=== PATIENT | female | born 1960 | race Caucasian/White ===

== ENCOUNTER 2018-10-21 15:40 | Emergency (ER) | payer OTHER ==
[~2018-10-21] VITALS: Ht 160 cm; Wt 51.7 kg
[~2018-10-21 15:40] MED LIST: ACETAMINOPHEN325 M1 PO; AMITRIPTYLINE H25 M2 PO; CARDIZEM; CARDIZEM CD240 MG PO; COMBIVENT INH; GLUCOPHAGE XR500 MG PO; GLUCOPHAGE500 MG PO; GLUCOTROL XL2.5 MG PO; GLUCOTROL XL5 MG PO; HYDROCODONE-AP1 EA11 PO; LEVAQUIN 500 M500 M3 PO; METFORMIN; MUCINEX600 MG PO; NEURONTIN 300300 M1 PO; NORCO 5-325 TA1 EACH PO; SYNTHROID112 MCG PO; TEGRETOL200 MG PO; TRAMADOL 50 MG50 MG PO; ULTRAM 50MG TAB50 MG PO; VICODIN 5-5001 EACH PO
[2018-10-21 16:56] LABS: ABSOLUTE NEUTROPHILS 8.7 thou/uL (1.4-8.2); BASOPHILS 1.4 % (0.0-2.0); EOSINOPHILS 0.1 % (0.0-3.0); HEMATOCRIT 44.8 % (37.0-47.0); HEMOGLOBIN 15.2 gm/dL (12.0-15.0); LYMPHOCYTES 11.9 % (24.0-44.0); MCH 30.5 pg (26.0-34.0); MCV 89.7 fL (80.0-100.0); MONOCYTES 8.3 % (1.0-8.0); PLATELET COUNT 309 thou/uL (150-400); POLYS 78.3 % (36.0-66.0); RBC 4.99 mil/uL (4.20-5.00); RDW 14.2 % (10.5-14.5); WBC 11.1 thou/uL (4.0-11.0)
[2018-10-21 16:57] LABS: URINE BILIRUBIN NEGATIVE (Negative); URINE BLOOD NEGATIVE (Negative); URINE CLARITY CLEAR; URINE COLOR YELLOW; URINE GLUCOSE-RANDOM* NEGATIVE (Negative); URINE KETONES NEGATIVE (Negative); URINE NITRITE-REFLEX NEGATIVE (Negative); URINE PROTEIN (DIPSTICK) 2+ (Negative); URINE SPECIFIC GRAVITY 1.025 (1.005-1.035); URINE UROBILINOGEN 0.2 E.U./dl (0.2-1.0)
[2018-10-21 17:02] LABS: URINE LEUKOCYTES-REFLEX TRACE (Negative)
[2018-10-21 17:06] LABS: CALCIUM 9.5 mg/dL (8.5-10.1); CREATININE 0.5 mg/dL (0.6-1.0); POTASSIUM 3.4 mmol/L (3.5-5.1)
[2018-10-21 17:12] LABS: CASTS None Seen /LPF (None Seen); CRYSTALS None Seen /LPF (None Seen); SQUAMOUS 4-10 Moderate /LPF (0-3); URINE RBC None Seen /HPF (0-2); URINE WBC-REFLEX 6-15 Few /HPF (0-5)
[2018-10-21 17:12] LABS: ALBUMIN 3.7 g/dL (3.4-5.0); TOTAL BILIRUBIN 0.5 mg/dL (<0.1-1.0); TOTAL PROTEIN 7.8 g/dL (6.4-8.2)
[2018-10-21 19:06] VITALS: BP 152/85
[2018-10-21] MEDS ORDERED: ONDANSETRON HCL4 M2 PO (19:48)
[2018-10-21] MEDS ORDERED: TEGRETOL200 MG PO (19:48)
[2018-10-21] MEDS ORDERED: SYNTHROID112 MC1 PO (19:48)
[2018-10-21] MEDS ORDERED: NORCO 5-325 TA1 EACH PO (19:48)
[2018-10-21] MEDS ORDERED: DOXYCYCLINE 10100 MG PO (19:48)
[2018-10-21] MEDS ORDERED: CARDIZEM CD240 MG PO (19:48)
== END 2018-10-21 20:10 | disposition home or self-care (01) ==
LOC: ER 15:40
PROVIDERS: Physician Assistant
DX: J18.9 Pneumonia, unspecified organism (principal); E03.9 Hypothyroidism, unspecified; R11.2 Nausea with vomiting, unspecified; R00.0 Tachycardia, unspecified; Z76.0 Encounter for issue of repeat prescription; J44.9 Chronic obstructive pulmonary disease, unspecified; I10 Essential (primary) hypertension; E11.9 Type 2 diabetes mellitus without complications; M41.9 Scoliosis, unspecified; Z88.1 Allergy status to other antibiotic agents; Z85.038 Personal history of other malignant neoplasm of large intestine

== ENCOUNTER 2020-02-05 23:32 | Inpatient (IN) | payer OTHER ==
[~2020-02-05] VITALS: Ht 160 cm; Wt 67.8 kg
[~2020-02-05 23:32] MED LIST changes: +DOXYCYCLINE 10100 MG PO; +ONDANSETRON HCL4 M2 PO; +SYNTHROID112 MC1 PO
[2020-02-05 23:33] VITALS: BP 174/74
[2020-02-06] VITALS (81 sets, daily range): BP systolic 77–148; BP diastolic 38–84
[2020-02-06 00:02] LABS: BE(vivo) -7.7 mmol/L (-2 to +3); PCO2 37.2 mmHg (35.0-45.0); PO2 61.6 mmHg (80.0-100.0); sO2 89.5 % (92.0-98.0)
[2020-02-06 00:03] LABS: pH 7.302 (7.360-7.450)
[2020-02-06 00:49] LABS: ABSOLUTE NEUTROPHILS 4.3 thou/uL (1.4-8.2); BASOPHILS 0.7 % (0.0-2.0); EOSINOPHILS 2.8 % (0.0-3.0); HEMATOCRIT 36.2 % (37.0-47.0); HEMOGLOBIN 11.7 gm/dL (12.0-15.0); LYMPHOCYTES 10.7 % (24.0-44.0); MCH 32.7 pg (26.0-34.0); MCHC 32.3 g/dL (28.0-37.0); MCV 101.2 fL (80.0-100.0); MONOCYTES 3.7 % (1.0-8.0); PLATELET COUNT 271 thou/uL (150-400); POLYS 82.1 % (36.0-66.0); RBC 3.58 mil/uL (4.20-5.00); RDW 14.8 % (10.5-14.5); WBC 5.2 thou/uL (4.0-11.0)
[2020-02-06 01:01] LABS: ANION GAP 22 mmol/L (7-16); BUN 52 mg/dL (7-18); CALCIUM 6.6 mg/dL (8.5-10.1); CHLORIDE 94 mmol/L (98-107); CO2 19 mmol/L (21-32); CREATININE 3.5 mg/dL (0.6-1.0); GLUCOSE 72 mg/dL (74-106); POTASSIUM 4.6 mmol/L (3.5-5.1); SODIUM 135 mmol/L (136-145)
[2020-02-06 01:13] LABS: ALBUMIN 2.9 g/dL (3.4-5.0); DIRECT BILIRUBIN 1.9 mg/dL (<0.1-0.2); SGOT 1957 U/L (15-37); SGPT 1473 U/L (30-65); TOTAL BILIRUBIN 2.7 mg/dL (<0.1-1.0); TOTAL PROTEIN 6.5 g/dL (6.4-8.2); TROPONIN-I <0.06 ng/mL (<0.06)
[2020-02-06 02:33] LABS: BE(vivo) -13.2 mmol/L (-2 to +3); HCO3 15.4 mmol/L (22.0-26.0); PCO2 46.4 mmHg (35.0-45.0); PO2 229.8 mmHg (80.0-100.0); sO2 99.2 % (92.0-98.0)
[2020-02-06 02:39] LABS: pH 7.139 (7.360-7.450)
[2020-02-06 02:40] LABS: URINE BILIRUBIN 2+ (Negative); URINE BLOOD NEGATIVE (Negative); URINE CLARITY SL CLOUDY; URINE COLOR YELLOW; URINE GLUCOSE-RANDOM* TRACE (Negative); URINE KETONES NEGATIVE (Negative); URINE LEUKOCYTES-REFLEX NEGATIVE (Negative); URINE PROTEIN (DIPSTICK) 2+ (Negative); URINE SPECIFIC GRAVITY >= 1.030 (1.005-1.035)
[2020-02-06 02:46] LABS: URINE NITRITE-REFLEX POSITIVE (Negative)
[2020-02-06 02:49] LABS: AMP/METHAMP Negative (Negative); BARBITURATES Negative (Negative); BENZODIAZEPINES Negative (Negative); COCAINE Negative (Negative); METHADONE Negative (Negative); OPIATES POSITIVE (Negative); PCP Negative (Negative)
[2020-02-06 03:21] LABS: BACTERIA-REFLEX 1-9 Few /HPF (None Seen); MUCUS 0-3 Light strn/LPF (None Seen); SQUAMOUS 4-10 Moderate /LPF (0-3); URINE RBC 0-2 Rare /HPF (0-2); URINE WBC-REFLEX 0-5 Rare /HPF (0-5)
[2020-02-06 03:22] LABS: CELLULAR CASTS 0-3 Few /LPF (None Seen); CRYSTALS None Seen /LPF (None Seen); HYALINE CASTS >10 Many /LPF (None Seen)
--- NOTE | 2020-02-06 03:25 | NUR ---
REPORT RECEIVED FROM MICKEY POPE. PT BROUGHT TO ICU FROM ED. PATIENT ON PROPOFOL AND LEVOPHED. PT INTUBATED. PT CONNECTED TO ICU MONITORS, ASSESSED PER ICU PROTOCOL.
[2020-02-06 07:14] LABS: CALCIUM 6.9 mg/dL (8.5-10.1); CREATININE 3.3 mg/dL (0.6-1.0); POTASSIUM 4.1 mmol/L (3.5-5.1)
[2020-02-06 10:04] LABS: BE(vivo) -10.2 mmol/L (-2 to +3); HCO3 15.2 mmol/L (22.0-26.0); PCO2 31.9 mmHg (35.0-45.0); PO2 89.6 mmHg (80.0-100.0); sO2 96.1 % (92.0-98.0)
[2020-02-06 10:05] LABS: pH 7.296 (7.360-7.450)
--- NOTE | 2020-02-06 11:01 | NUR ---
chart review. pt intubated, unable to visit with her via phone call. will cont following as needed for dc needs.
[2020-02-06 13:27] LABS: ALBUMIN 2.2 g/dL (3.4-5.0); CALCIUM 6.1 mg/dL (8.5-10.1); DIRECT BILIRUBIN 1.5 mg/dL (<0.1-0.2); POTASSIUM 3.9 mmol/L (3.5-5.1); TOTAL BILIRUBIN 1.8 mg/dL (<0.1-1.0); TOTAL PROTEIN 5.2 g/dL (6.4-8.2)
--- NOTE | 2020-02-06 15:01 | NUR ---
VASCULAR ACCESS CONSULTED TO PLACE CVAD AND REMOVE FEMORAL LINE. FAMILY UNDECIDED IF WILL CONSENT TO IJ PLACEMENT. WAITING FOR RETURN CALL FROM SON
--- NOTE | 2020-02-06 16:53 | NUR ---
ASSUMED CARE AT 0700, ASSESSMENT AND VITAL SIGNS COMPLETED PER ICU PROTOCOL. DR. NAVARRO ROUNDED IN AN, NEW ORDERS RECEIVED AND EXECUTED. DR. PAUL ROUNDED THIS AM, NO NEW ORDERS RECEIVED. DR. MENSAH ROUNDED THIS AM, NO NEW ORDERS RECEIVED. DR. SOLIMAN ROUNDED THIS AM, NO NEW ORDERS RECEIVED. DR. LAM ROUNDED THIS AM, NO NEW ORDERS RECEIVED. DR. RANDLE ROUNDED THIS AFTERNOON, NEW ORDERS RECEIVED AND EXECUTED. DR. NAVARRO PAGED AND NOTIFIED OF LOW URINE OUTPUT, NEW ORDERS RECEIVED AND EXECUTED. CJ HERNÁNDEZ, ORDERED ABD ULTRASOUND. RN VOICED REPORTED COVID RESULTS STILL PENDING, OKAY TO HOLD TEST UNTIL COVID RESULTS ARE BACK, PER EDGAR.
--- NOTE | 2020-02-06 17:30 | NUR ---
CONSENT OBTAINED FROM SON. HADLEY WAS WIDELY PATENT WITH [facility]. PT'S LABS,MEDS,HISTORY,ORDER AND CONSENT VERIFIED. 6FR TL POWER JACC 25CM INSERTED TO 10CM EXTERNAL. STAT CXR ORDERED. PT TOLERATED WELL
--- NOTE | 2020-02-06 18:16 | NUR ---
CXR CONFIRMED PLACEMENT, RELEASED FOR IMMEDIATE USE PER PROTOCOL TO RAKESH AREVALO. PRESSURE DRESSING APPLIED TO RIJ DUE TO INCREASED BLEEDING AT SITE.
[2020-02-07] VITALS (44 sets, daily range): BP systolic 102–142; BP diastolic 54–99
[2020-02-07 01:07] LABS: GLYCOHEMOGLOBIN (HGB A1C) 5.4 % (4.8-5.6)
--- NOTE | 2020-02-07 03:42 | NUR ---
ASSUMED PT CARE AROUND 1900. PT IS INTUBATED BUT CAN BE AROUSED WITH MOVEMENT. PT PUPILS ARE REACTIVE. FiO2 INCREASED TO 70% PER RESPIRATORY. PT HR REMAINED SR-ST IN LOW 100s. PT HAS BEEN TURNED AND SUCTIONED APPROPRIATELY. FEMORAL LINE REMOVED PER PROTOCOL. PT WEISS IN PLACE WITH INCREASED OUTPUT FROM PREVIOUS SHIFT. OGT PRODUCING DARK GREEN OUTPUT. PT COVID RESULT NEGATIVE REMOVED FROM ISOLATION PER PROTOCOL. FAMILY CALLED WANTING TO VISIT ADVISED THAT NO VISITORS AT THIS TIME. MONITORING PT CLOSELY THRU SHIFT FOR ANY CHANGES.
[2020-02-07 04:53] LABS: BE(vivo) -0.5 mmol/L (-2 to +3); HCO3 24.5 mmol/L (22.0-26.0); PCO2 41.8 mmHg (35.0-45.0); PO2 73.6 mmHg (80.0-100.0); pH 7.386 (7.360-7.450); sO2 94.6 % (92.0-98.0)
[2020-02-07 07:08] LABS: HAV IgM AB (ANTI-HAV IgM) Negative (Negative); HEPATITIS B SURFACE AG Negative (Negative); HEPATITIS C VIRUS AB <0.1 (0.0-0.9)
[2020-02-07 08:17] LABS: HEMATOCRIT 26.1 % (37.0-47.0); MCH 33.1 pg (26.0-34.0); MCV 97.5 fL (80.0-100.0); RBC 2.68 mil/uL (4.20-5.00); RDW 14.7 % (10.5-14.5); WBC 4.4 thou/uL (4.0-11.0)
[2020-02-07 08:36] LABS: ALBUMIN 2.2 g/dL (3.4-5.0); CALCIUM 6.9 mg/dL (8.5-10.1); MAGNESIUM 1.9 mg/dL (1.8-2.4); PHOSPHORUS 3.5 mg/dL (2.5-4.9); TOTAL PROTEIN 5.5 g/dL (6.4-8.2)
[2020-02-07 08:39] LABS: CREATININE 1.8 mg/dL (0.6-1.0); POTASSIUM 2.8 mmol/L (3.5-5.1)
[2020-02-07 08:45] LABS: HEMOGLOBIN 8.9 gm/dL (12.0-15.0)
--- NOTE | 2020-02-07 09:11 | NUR ---
Lab called with critical results at 0837. Dr. Rsoa was paged through the answering service at 0841. A repeat page was performed at 0904. RN spoke with Dr. Londono at 0908. RN read provider critical results. He verbalized understanding and asked for the rest of the chemistry results. Provider then ordered 40 of IV KCL to be given now along with previously ordered 80mg of lasix, 40 of IV KCL to be given at 1400, and then recheck K levels at 1600. RN verbalized understanding. Will continue to monitor.
--- NOTE | 2020-02-07 09:32 | EKG ---
[facility] [address] [place] [address] [address] ELECTROCARDIOGRAM REPORT Name: VEENA VIERA Room #: 246-P ADM IN M.R.#: [id number] Admission: 02/06/20 Attend Phys: Noel Russo MD Discharge: Date of : 60 Report #: [id number] THIS REPORT FOR: cc: [facility] - Clinic physician unknown [facility] - Clinic physician unknown Souleymane Ram MD [facility] THIS REPORT FOR: //name// [facility] Test Date: 2020-02-07 Test Time: 07:31:42 Pat Name: VEENA VIERA Department: Room: [facility] P Gender: F It Investment/Portfolio Manager: Sudeep ONTIVEROS : 1960 Requested By: Ivonne Sheldon Order Number: [id number] MD: Souleymane Ram Measurements Intervals [place] Rate: 103 P: 64 MT: 180 QRS: -50 QRSD: 85 T: 75 QT: 399 QTc: 523 Interpretive Statements Sinus tachycardia Left anterior fascicular block RSR' in V1 or V2, right VCD Nonspecific ST and T wave abnormality Prolonged QT interval Compared to ECG 02/06/2020 14:36:14 Atrial premature complex(es) no longer present Electronically Signed On 02-07-2020 9:31:09 CDT by Souleymane Ram [email or web address] <ELECTRONICALLY SIGNED> By: Souleymane Ram MD, [facility] 02/07/20930 0 0 Souleymane Ram MD, [facility] /EPI
--- NOTE | 2020-02-07 11:16 | 2DMMODE ---
[facility] [place] [address] 2 D/M-MODE ECHOCARDIOGRAM Name: VEENA VIERA Room #: 246-P ADM IN M.R.#: [id number] Admission: 02/06/20 Attend Phys: Noel Russo MD Discharge: Date of : 60 Report #: [id number] THIS REPORT FOR: cc: [facility] - Clinic physician unknown [facility] - Clinic physician unknown Souleymane Ram MD [facility] ~ APPROVED REPORT Study performed: 02/07/2020 10:28:55 EXAM: Comprehensive 2D, Doppler, and color-flow Echocardiogram Patient Location: ICU Room #: 246 Status: routine BSA: 1.67 HR: 90 bpm BP: 121/67 mmHg Rhythm: NSR/irregular Other Information Study Quality: Adequate/patient on vent in ICU Indications Caridac vs. respiratory arrest. CHF. Hx: COPD, HTN, DM, cancer. 2D Dimensions RVDd: 32.75 mm IVSd: 10.64 (7-11mm) LVOT Diam: 20.62 (18-24mm) LVDd: 39.02 mm PWd: 8.84 (7-11mm) Ascending Ao: 32.12 (22-36mm) LVDs: 25.45 (25-40mm) Aortic Root: 33.76 mm Volumes Left Atrial Volume (Systole) Single Plane 4CH: 20.62 mL Single Plane 2CH: 34.90 mL LA ESV Index: 17.00 mL/m2 Aortic Valve AoV Peak Abdulaziz.: 1.36 m/s AO Peak Gr.: 7.37 mmHg LVOT Max P.27 mmHg LVOT Max V: 1.25 m/s MICHELET Vmax: 3.[address] [facility] [address] [place] [address] 2 D/M-MODE ECHOCARDIOGRAM Name: VEENA VIERA Room #: [address] [place] [address] [place] [facility].#: [id number] Admission: 02/06/20 Attend Phys: Noel Russo MD Discharge: Date of : 60 Report #: [id number] Mitral Valve E/A Ratio: 0.8 MV Decel. Time: 290.24 ms MV E Max Abdulaziz.: 1.05 m/s MV A Abdulaziz.: 1.32 m/s MV PHT: 84.17 ms IVRT: 72.66 ms Pulmonary Valve PV Peak Abdulaziz.: 0.90 m/s PV Peak Gr.: 3.21 mmHg Tricuspid Valve TR Peak Abdulaziz.: 3.00 m/s RAP Estimate: 15.00 mmHg TR Peak Gr.: 36.12 mmHg PA Pressure: 51.00 mmHg Left Ventricle The left ventricle is normal size. There is normal LV segmental wall motion. There is normal left ventricular wall thickness. Left ventricular systolic function is normal. LVEF is 60-65%. Mild diastolic dysfunction is present (impaired relaxation pattern). Right Ventricle The right ventricle is normal size. Right ventricle is mildly hypokinetic. Atria The left atrium size is normal. Lipomatous hypertrophy of the atrial septum The right atrium size is normal. Aortic Valve The aortic valve is trileaflet, mildly calcified. No aortic regurgitation is present. There is no aortic valvular stenosis. Mitral Valve Moderate mitral annular calcification. There is no mitral valve regurgitation noted. No evidence of mitral valve stenosis. Tricuspid Valve The tricuspid valve is normal in structure. Trace to mild tricuspid regurgitation. Estimated PAP is [address] [facility] [employer] [place] [address] 2 D/M-MODE ECHOCARDIOGRAM Name: VEENA VIERA Room #: 246-P ADM IN M.R.#: [id number] Admission: 02/06/20 Attend Phys: Noel Russo MD Discharge: Date of : 60 Report #: [id number] The pulmonary valve is normal in structure. Mild to moderate pulmonic regurgitation. Great Vessels The aortic root is normal in size. The ascending aorta is normal in size. IVC is dilated and collapses <50% with inspiration. Pericardium There is no pericardial effusion. <Conclusion> Left ventricular systolic function is normal. There is normal LV segmental wall motion. LVEF is 60-65%. Mild diastolic dysfunction The aortic valve is trileaflet, mildly calcified. No aortic regurgitation or stenosis. Moderate mitral annular calcification. No mitral valve regurgitation. Trace to mild tricuspid regurgitation. Estimated pulmonary artery pressure of 45 mmHg. There is no pericardial effusion. <ELECTRONICALLY SIGNED> By: Souleymane Ram MD, [facility] 02/07/20 1115 1115 1115 Souleymane Ram MD, FACC /INF
[2020-02-08] VITALS (24 sets, daily range): BP systolic 93–157; BP diastolic 48–78
[2020-02-08 05:46] LABS: ALBUMIN 2.1 g/dL (3.4-5.0); CALCIUM 6.9 mg/dL (8.5-10.1); CREATININE 0.9 mg/dL (0.6-1.0); PHOSPHORUS 2.2 mg/dL (2.5-4.9)
[2020-02-08 05:51] LABS: POTASSIUM 2.7 mmol/L (3.5-5.1)
--- NOTE | 2020-02-08 08:20 | EKG ---
[facility] [place] [address] ELECTROCARDIOGRAM REPORT Name: VEENA VIERA Room #: 246-P ADM IN M.R.#: [id number] Admission: 02/06/20 Attend Phys: Noel Russo MD Discharge: Date of : 60 Report #: [id number] THIS REPORT FOR: cc: [facility] - Clinic physician unknown [facility] - Clinic physician unknown Souleymane Ram MD [facility] THIS REPORT FOR: //name// [facility] Test Date: 2020-02-08 Test Time: 08:12:08 Pat Name: VEENA VIERA Department: Room: [facility] P Gender: F Network Program Manager: JYOTHI : 1960 Requested By: Ivonne Sheldon Order Number: [id number] MD: Souleymane Ram Measurements Intervals [place] Rate: 91 P: 78 AR: 143 QRS: -27 QRSD: 96 T: 36 QT: 404 QTc: 498 Interpretive Statements Sinus rhythm Borderline left axis deviation Low voltage RSR' in V1 or V2, right VCD prolonged QT interval Compared to ECG 02/07/2020 07:31:42 No significant change was found Electronically Signed On 02-08-2020 8:19:04 CDT by Souleymane Ram [email or web address] <ELECTRONICALLY SIGNED> By: Souleymane Ram MD, [facility]AC 02/08/20818 1 1 Souleymane Ram MD, FAC /EPI
--- NOTE | 2020-02-08 08:25 | NUR ---
RD recommendations changed with hyperglycemia. Suggest initiate vital AF 1.2 at goal of 45ml/hr while on propofol.
[2020-02-08 15:20] LABS: MAGNESIUM 2.1 mg/dL (1.8-2.4); PHOSPHORUS 3.7 mg/dL (2.5-4.9); POTASSIUM 3.6 mmol/L (3.5-5.1)
[2020-02-09] VITALS (24 sets, daily range): BP systolic 97–147; BP diastolic 48–88
[2020-02-09 04:13] LABS: ABSOLUTE NEUTROPHILS 3.9 thou/uL (1.4-8.2); BASOPHILS 0.1 % (0.0-2.0); HEMATOCRIT 24.9 % (37.0-47.0); HEMOGLOBIN 8.3 gm/dL (12.0-15.0); LYMPHOCYTES 7.1 % (24.0-44.0); MCH 32.6 pg (26.0-34.0); MCHC 33.4 g/dL (28.0-37.0); MCV 97.8 fL (80.0-100.0); MONOCYTES 5.2 % (1.0-8.0); PLATELET COUNT 99 thou/uL (150-400); POLYS 87.6 % (36.0-66.0); RBC 2.55 mil/uL (4.20-5.00); RDW 14.9 % (10.5-14.5); WBC 4.4 thou/uL (4.0-11.0)
[2020-02-09 04:28] LABS: ALBUMIN 2.1 g/dL (3.4-5.0); CALCIUM 7.3 mg/dL (8.5-10.1); CREATININE 0.6 mg/dL (0.6-1.0); TOTAL BILIRUBIN 2.5 mg/dL (<0.1-1.0); TOTAL PROTEIN 5.1 g/dL (6.4-8.2)
--- NOTE | 2020-02-09 07:42 | NUR ---
ASSUMED CARE OF PATIENT AT 1900, PATIENT ON MODERATE SEDATEION. ATTEMPTED TO WEAN PROPOFOL DOWN, PATIENT RESPIRATORY RATE INCREASED AND GAGING ON TUBE, PROPOFOL CURRENTLY AT 40MCG/HR, NO SIGN OF PAIN. FIO2 45%, NO RESPIRATORY ISSUES OVER NIGHT. OG TO LIS. WEISS PATENT AND 30ML/HR. IVF DISCONTINUED PER DR. WOLF. ELECTROLYTES CLOSELY MONITORED, POTASSIUM REPLACED. NO SIGN OF ACUTE DISTRESS NOTED AT THIS TIME. WILL CONTINUE TO MONITOR.
--- NOTE | 2020-02-09 11:06 | NUR ---
chart review. pt remain intubated, has TF for nutritional support. possible weaning trails. no anticipated dc over the weekend, will cont following as needed for dc needs.
--- NOTE | 2020-02-09 11:09 | NUR ---
CPAP TRIAL INITIATED THIS AM. PT BECAME ANXIOUS, TACYHCARDIC AND TACHYPENIC. PLACED BACK ON ASSIST CONTROL. PROPOFOL INFUSING TO MAINTAIN A LIGHT SEDATION FOR VENT MANAGEMENT. DR. MENSAH AND GI DOCTOR ROUNDED ON PATIENT.
--- NOTE | 2020-02-09 12:24 | EKG ---
[facility] [place] [address] [place] [address] ELECTROCARDIOGRAM REPORT Name: VEENA VIERA Room #: 246-P ADM IN M.R.#: [id number] Admission: 02/06/20 Attend Phys: Noel Russo MD Discharge: Date of : 60 Report #: [id number] THIS REPORT FOR: cc: [facility] - Clinic physician unknown [facility] - Clinic physician unknown Souleymane Ram MD [facility] THIS REPORT FOR: //name// [facility] ED Test Date: 2020-02-06 Test Time: 01:21:13 Pat Name: VEENA VIERA Department: Room: 246 P Gender: F Metal Grader: GISSEL : 1960 Requested By: Migdalia Mcclain Order Number: [id number] MD: Souleymane Ram Measurements Intervals [place] Rate: 76 P: 55 TN: 171 QRS: 262 QRSD: 102 T: 50 QT: 516 QTc: 581 Interpretive Statements Sinus rhythm LAD RSR' in V1 or V2, right VCD Repol abnrm suggests ischemia, anterolateral Prolonged QT interval QT interval has lengthened Electronically Signed On 02-06-2020 8:00:02 CDT by Souleymane Ram [email or web address] <ELECTRONICALLY SIGNED> By: Souleymane Ram MD, [facility] 02/06/20 0800 0 012 Souleymane Ram MD, [facility] /EPI
--- NOTE | 2020-02-09 12:26 | EKG ---
[facility] [address] [place] [address] ELECTROCARDIOGRAM REPORT Name: VEENA VIERA Room #: 246-P ADM IN M.R.#: [id number] Admission: 02/06/20 Attend Phys: Noel Russo MD Discharge: Date of : 60 Report #: [id number] THIS REPORT FOR: cc: [facility] - Clinic physician unknown [facility] - Clinic physician unknown Souleymane Ram MD [facility] THIS REPORT FOR: //name// [facility] Test Date: 2020-02-06 Test Time: 14:36:14 Pat Name: VEENA VIERA Department: Room: 246 P Gender: F Marble Finisher: Misty YAÑEZ : 1960 Requested By: Raymundo Cabezas Order Number: [id number] MD: Souleymane Ram Measurements Intervals [place] Rate: 101 P: 70 AL: 150 QRS: -71 QRSD: 82 T: 45 QT: 380 QTc: 493 Interpretive Statements Sinus tachycardia Atrial premature complexes Left anterior fascicular block RSR' in V1 or V2, right VCD Nonspecific ST and T wave abnormality Prolonged QT interval Compared to ECG 02/06/2020 01:21:13 Atrial premature complex(es) now present Electronically Signed On 02-06-2020 16:28:37 CDT by Souleymane Ram [email or web address] <ELECTRONICALLY SIGNED> By: Souleymane Ram MD, [facility] 02/06/20 1628 1436 1436 Souleymane Ram MD, [facility] /EPI
--- NOTE | 2020-02-09 12:37 | NUR ---
LAB CALLED TO STATE PREVIOUS SPUTUM SENT COULD NOT BE RESULTED. NEW ORDER PLACED AND SENT TO LAB.
[2020-02-09 17:55] LABS: ABSOLUTE RETIC COUNT 0.0616 10^6/uL; OBSERVED RETIC COUNT 2.4 % (0.6-2.6)
[2020-02-09 21:07] LABS: APTT 25.7 Seconds (24.5-32.8); D-DIMER 4.55 ug/mLFEU (0.19-0.50); FIBRINOGEN 148.9 mg/dL (210-360); INR 1.2; PROTIME 12.3 Seconds (9.3-11.4)
[2020-02-10] VITALS (22 sets, daily range): BP systolic 104–156; BP diastolic 57–88
[2020-02-10 04:58] LABS: ABSOLUTE NEUTROPHILS 4.9 thou/uL (1.4-8.2); BASOPHILS 0.1 % (0.0-2.0); HEMATOCRIT 26.3 % (37.0-47.0); HEMOGLOBIN 8.8 gm/dL (12.0-15.0); LYMPHOCYTES 7.3 % (24.0-44.0); MCH 33.2 pg (26.0-34.0); MCHC 33.7 g/dL (28.0-37.0); MCV 98.5 fL (80.0-100.0); MONOCYTES 5.1 % (1.0-8.0); PLATELET COUNT 108 thou/uL (150-400); POLYS 87.5 % (36.0-66.0); RBC 2.67 mil/uL (4.20-5.00); RDW 15.3 % (10.5-14.5); WBC 5.6 thou/uL (4.0-11.0)
[2020-02-10 05:00] LABS: CALCIUM 8.2 mg/dL (8.5-10.1); CREATININE 0.8 mg/dL (0.6-1.0); POTASSIUM 3.8 mmol/L (3.5-5.1)
--- NOTE | 2020-02-10 07:32 | NUR ---
SEDATION VACATION PERFORMED AT 1999, PT ON 6MG OF VERSED. VERSED OFF FOR 30 MINS. PT UNABLE TO FOLLOW COMMANDS. MOVES EXTREMITIES. DOESN'T RESPONSED TO NAME OR OPEN EYES WHEN NAME CALLED. VITAL SIGNS STABLE DURING THIS PERIOD. VERSED TITRATED DOWN TO 4MG AT 2030 DURING THE NIGHT. ANOTHER SEDATION VACATION PERFOMED AT 0530, FOR APPROXIMATELY 15 MINS. PT STILL ABLE TO MOVE EXTREMETIES. DOESN'T FOLLOW COMMANDS. VERSED TITRATED DOWN TO 2MG, CURRENTLY ONGOING. AFEBRILE DURING THE NIGHT. URINE OUTPUT NOTED. NO APPARENT PAIN. TF ONGOING AND TOLERATING. WILL CONTINUE TO MONITOR.
[2020-02-10 16:07] LABS: ADENOVIRUS Negative (Negative); INFLUENZA A Negative (Negative); INFLUENZA B Negative (Negative); METAPNEUMOVIRUS Negative (Negative); PARAINFLUENZA 1 Negative (Negative); PARAINFLUENZA 2 Negative (Negative); PARAINFLUENZA 3 Negative (Negative); RHINOVIRUS Negative (Negative); RSV A Negative (Negative); RSV B Negative (Negative)
--- NOTE | 2020-02-10 17:38 | NUR ---
IN EARLY AM, SEDATION VACATION FOLLOWED BY CPAP TRIAL FOR 10 MIN, RR-28-30, FACIAL GRIMACE, DISTRESSED. RETURNED TO ASSIST CONTROL PER COLLABORATION WITH RT TOMASA. VERSED REMAINS OFF. FENTANYL RESTARTED WHEN PT HAVING FACIAL GRIMACE AND RESTLESS IN BED. FOLLOWING COMMANDS WITH ALL EXTREMITIES, SR. WHEN DR. STRICKLAND PRESENT UPDATED ON FREQUENT TRIPLETS OF PVC'S. POTASSIUM- 3.8, KCL REPLACEMENT GIVEN PER ONE TIME ORDER. ECTOPY RESOLVED. POTASSIUM RECHECK TOMORROW AM PER MD REQUEST. DECREASING SECRETIONS PER ETT THROUGH SHIFT. BUTTOCKS INTACT WITH DEEP TISSUE INJURY, REDDENED/DEEP PURPLE. ROTATION ENABLED AND REPOSTIONED EVERY 2 HRS. RACIEL VIERA, SON INQUIRED REGARDING PT STATUS. HIS FIRST CALL, HE WAS UNSURE OF THE PRIVACY CALLED. INFORMED OF IMPORTANCE OF PATIENT PRIVACY. WHEN HE INQUIRED AGAIN, HE STATED, "I DON'T KNOW WHY I'M HAVING SO MUCH TROUBLE TRYING TO GET INFORMATION". INFORMED HIM THIS IS THE SAME NURSE HE SPOKE WITH PREVIOUSLY. HE REQUESTED TO PLACE REQUEST FOR ADDITIONAL AUTHORIZED CONTACTS/ DESIGNATED PT PRIMARY COUNSELOR. AFTER DISCUSSION, HE DECIDED TO MAINTAIN THE CURRENT CONTACTS.
[2020-02-11] VITALS (29 sets, daily range): BP systolic 88–172; BP diastolic 53–103
[2020-02-11 03:40] LABS: HEMATOCRIT 27.7 % (37.0-47.0); HEMOGLOBIN 9.2 gm/dL (12.0-15.0); MCH 32.6 pg (26.0-34.0); MCV 98.7 fL (80.0-100.0); RBC 2.81 mil/uL (4.20-5.00); RDW 15.4 % (10.5-14.5); WBC 7.1 thou/uL (4.0-11.0)
[2020-02-11 03:57] LABS: ALBUMIN 2.3 g/dL (3.4-5.0); CALCIUM 8.3 mg/dL (8.5-10.1); CREATININE 0.6 mg/dL (0.6-1.0); POTASSIUM 4.4 mmol/L (3.5-5.1); TOTAL BILIRUBIN 1.9 mg/dL (<0.1-1.0); TOTAL PROTEIN 5.4 g/dL (6.4-8.2)
--- NOTE | 2020-02-11 07:30 | NUR ---
NO OVERNIGHT EVENTS. PT CONTINUES TO HAVE ECTOPY, POTASSIUM WITHIN NORMAL RANGE AND MAGNESIUM LOW. WILL REPLACE MAGNESIUM PER PROTOCOL. PT ON FENTANYL GTT FOR VENT MANAGMENT. PT BECAME MORE RESTLESS THIS MORNING, VERSED IV PUSH GIVEN ONCE AROUND 0300. PT IS PROGRESSING TOWARDS GOALS. WILL CONTINUE TO MONITOR.
--- NOTE | 2020-02-11 16:45 | NUR ---
5864- Per Dr. Reeves, weaning trial now. So, RT switched pt to cpap trial at this time. Nurse has lowered her fentanyl gtt to 50mcg and she is more awake, moving all extremeties at this time. O2 sat is 93%, Respiratory rate is 19, heart rate is 71. Nurse to continue to monitor patient status.
--- NOTE | 2020-02-11 17:23 | NUR ---
1710- SWITCHED BACK TO AC ON VENTILATOR STATUS PER DR. RANDLE. 1704- NURSE TALKED WITH DR. RANDLE WITH THESE FINDINGS. PATIENT REPORT FEELING SHORT OF AIR TV'S-400-500S RR 22-28 O2 SAT 91% BP 172/[address] RANDLE, RESUME VERSED, AND OK TO START PRECEDEX IF NEEDED FOR PATIENT COMFORT.
--- NOTE | 2020-02-11 18:45 | NUR ---
1830- pt moved to pod 3, room 249.
[2020-02-11 23:48] LABS: BE(vivo) 5.4 mmol/L (-2 to +3); HCO3 28.9 mmol/L (22.0-26.0); PCO2 38.4 mmHg (35.0-45.0); PO2 92.1 mmHg (80.0-100.0); pH 7.495 (7.360-7.450); sO2 97.6 % (92.0-98.0)
[2020-02-12] VITALS (42 sets, daily range): BP systolic 86–158; BP diastolic 42–95
--- NOTE | 2020-02-12 04:14 | NUR ---
WILL CONTINUE TO MONITOR
[2020-02-12 05:38] LABS: PCO2 40.7 mmHg (35.0-45.0); PO2 123.2 mmHg (80.0-100.0); pH 7.471 (7.360-7.450); sO2 98.6 % (92.0-98.0)
[2020-02-12 06:27] LABS: HEMATOCRIT 27.2 % (37.0-47.0); MCH 32.9 pg (26.0-34.0); MCHC 33.1 g/dL (28.0-37.0); MCV 99.4 fL (80.0-100.0); RBC 2.73 mil/uL (4.20-5.00); RDW 15.3 % (10.5-14.5); WBC 8.1 thou/uL (4.0-11.0)
[2020-02-12 06:42] LABS: ALBUMIN 2.3 g/dL (3.4-5.0); CREATININE 0.5 mg/dL (0.6-1.0); MAGNESIUM 2.2 mg/dL (1.8-2.4); POTASSIUM 4.7 mmol/L (3.5-5.1); TOTAL BILIRUBIN 1.8 mg/dL (<0.1-1.0); TOTAL PROTEIN 5.2 g/dL (6.4-8.2)
--- NOTE | 2020-02-12 08:39 | NUR ---
RN assumed care at 0700. PT was awake in bed moving all extremities. RT on unit and placed PT on CPAP trial at 0805. PT quickly became tachypneic with a respiratory rate of 35-40. Her oxygen saturation began to decline. O2 saturation was noted to be low 80s but went as low as 78. RT adjusted CPAP settings but was unable to bring O2 levels to WNL. PT was placed back on assist control settings at 0830 and was suctioned. RN noted medium amounts of thick white sputum. Oxygen saturation was noted to be 96%. RN will continue to monitor.
--- NOTE | 2020-02-12 10:18 | NUR ---
Nutrition: Now that propofol D/C'ed, REC increase tube feeding rate to 55 mL/hr to meet needs
--- NOTE | 2020-02-12 10:32 | NUR ---
WOUND CONSULT; AFTER COMPLETE ASSESSMENT THERE ARE NO WOUNDS. ONLY HEMISIDERIN STAINING- LIKE PROCESS. THE PATIENT WAS ADMITTED ON 02/06/20 THE PICTURES SHOW INJURY TO THE AREA IN LINIAR PATTERNS THAT LOOK SCABBED. THE ASSESSMENT TODAY REVEALED NO SCRATCHES ONLY INTACT HMOSIDERIN-LIKE STAINING. THE RN IS USING BARRIER CREAM. RECOMMENDATION; WOUND CARE MD TO RULE OUT DTI VS HEMOSIDREN STAINING
--- NOTE | 2020-02-12 11:09 | EKG ---
[facility] [place] [address] ELECTROCARDIOGRAM REPORT Name: VEENA VIERA Room #: 248-P ADM IN M.R.#: [id number] Admission: 02/06/20 Attend Phys: Noel Russo MD Discharge: Date of : 60 Report #: [id number] THIS REPORT FOR: cc: [facility] - Clinic physician unknown [facility] - Clinic physician unknown Ge Payne MD ~ THIS REPORT FOR: //name// [facility] Test Date: 2020-02-12 Test Time: 08:53:19 Pat Name: VEENA VIERA Department: Room: 248 P Gender: F Dental Appliance Fixer: JYOTHI : 1960 Requested By: Ra Urrutia Order Number: [id number] MD: Ge Payne Measurements Intervals [place] Rate: 65 P: 29 IN: 138 QRS: -35 QRSD: 91 T: 3 QT: 413 QTc: 430 Interpretive Statements Sinus rhythm Probable left atrial enlargement Left axis deviation Low voltage, precordial leads RSR' in V1 or V2, right VCD or RVH Consider anterior infarct Compared to ECG 02/08/2020 08:12:08 Electronically Signed On 02-12-2020 11:08:24 CDT by Ge Payne [email or web address] <ELECTRONICALLY SIGNED> By: Ge Payne MD 02/12/20 1108 0853 Ge Payne MD /EPI
--- NOTE | 2020-02-12 13:09 | NUR ---
chart review. discussed during los, cont weaning trails. pt remains on vet, Tube feed for nutritional needs. cm left message with son shelia, requested a return call. will cont following as needed for dc needs.
--- NOTE | 2020-02-12 15:34 | NUR ---
RN noted PT's urinary output appeared to slow down from 1200 to 1530. RN noted PT had put out 50 cc of urine for that time frame. RN assessed PT's stevenson and it appeared intact however after RN irrigated PT's stevenson catheter with 10 cc of NS the PT put out 225 cc of urine at 1533. RN will continue to monitor.
[2020-02-12 17:07] LABS: HEMATOLOGY COMMENTS Note: (()); HEMOGLOBIN 8.1 g/dL (11.1-15.9)
--- NOTE | 2020-02-12 18:11 | NUR ---
RN paged DR. Russo at 1605 to notify him that the PT's blood pressures have declined into the 80s systolic and MAP < 60. RN paged Dr. Russo a second time at 1630 with no response as of yet. RN shut off the versed gtt, repositioned the PT and her cuff, with minimal improvement in her blood pressure. MAP went to 61. PRN levophed gtt is on PT's orders and was requested from pharmacy. RN sent a [employer] text to Dr. Russo at 1806. RN will continue to monitor.
[2020-02-13] VITALS (28 sets, daily range): BP systolic 82–156; BP diastolic 42–81
--- NOTE | 2020-02-13 02:45 | NUR ---
Pt very anxious and restless. Tachypneic. Hypotension noted with increase in Versed gtt. Will switch pt to precedex gtt to see if better tolerated.
[2020-02-13 04:01] LABS: BE(vivo) -1.5 mmol/L (-2 to +3); HCO3 21.4 mmol/L (22.0-26.0); PCO2 31.6 mmHg (35.0-45.0); PO2 82.2 mmHg (80.0-100.0); pH 7.449 (7.360-7.450); sO2 96.6 % (92.0-98.0)
[2020-02-13 05:02] LABS: ABSOLUTE NEUTROPHILS 6.7 thou/uL (1.4-8.2); BASOPHILS 0.1 % (0.0-2.0); EOSINOPHILS 0.1 % (0.0-3.0); HEMATOCRIT 23.9 % (37.0-47.0); HEMOGLOBIN 7.9 gm/dL (12.0-15.0); LYMPHOCYTES 5.5 % (24.0-44.0); MCH 32.7 pg (26.0-34.0); MCV 99.1 fL (80.0-100.0); MONOCYTES 4.9 % (1.0-8.0); PLATELET COUNT 124 thou/uL (150-400); POLYS 89.4 % (36.0-66.0); RBC 2.41 mil/uL (4.20-5.00); RDW 15.3 % (10.5-14.5); WBC 7.5 thou/uL (4.0-11.0)
[2020-02-13 05:14] LABS: ALBUMIN 2.2 g/dL (3.4-5.0); CALCIUM 8.3 mg/dL (8.5-10.1); CREATININE 0.5 mg/dL (0.6-1.0); POTASSIUM 4.9 mmol/L (3.5-5.1); TOTAL BILIRUBIN 1.2 mg/dL (<0.1-1.0); TOTAL PROTEIN 4.9 g/dL (6.4-8.2)
--- NOTE | 2020-02-13 06:44 | NUR ---
Shift summary: Uneventful night. Pt remains lighlty sedated on vent. Open eyes, follows commands. Nods appropriately. Fentanyl gtt at 25 mcg/hr. Precedex gtt at 0.4 mcg/kg/hr. Pt more calm on precedex, able to rest in between cares. SR per monitor. Tolerating current vent settings. Moderate amt white secretions. Lungs coarse. Tolerating tube feeding. No stool this shift. Ahn with adequate output ~ 700ml/hr. Plan of care reviewed and updated as able. AM labs and ABG results noted. Portable chest xray pending.
[2020-02-13 10:18] LABS: BE(vivo) 1.9 mmol/L (-2 to +3); HCO3 25.8 mmol/L (22.0-26.0); PCO2 37.2 mmHg (35.0-45.0); PO2 87.9 mmHg (80.0-100.0); pH 7.459 (7.360-7.450); sO2 97.1 % (92.0-98.0)
[2020-02-14] VITALS (17 sets, daily range): BP systolic 144–175; BP diastolic 77–99
--- NOTE | 2020-02-14 05:37 | NUR ---
ASSUMED PT CARE AT 1900. PT IS ALERT AND ORIENTED TO SELF ONLY. NO SIGN OF DISTRESS NOTED. PT EXTUBATED 02/[address] ON NASAL CANNULA 3L NC. O2 SATURATIONS STABLE. VERBALIZES PAIN A RESULT OF COUGHING. PAIN MED ADMINISTERED TO PAIN APPROPRIATE. FALL PRECAUTION IN PLACE. ASSESSMENT COMPLETED AND DOCUMENTED. SCHEDULED MEDS ADMINISTERED TO PT. CONTINUE TO MONITOR, NO EVENTS OCCURRED OVERNIGHT.DENIES ANY NEEDS AT THIS TIME.
[2020-02-14 05:50] LABS: ALBUMIN 2.5 g/dL (3.4-5.0); CALCIUM 8.5 mg/dL (8.5-10.1); CREATININE 0.4 mg/dL (0.6-1.0); POTASSIUM 4.6 mmol/L (3.5-5.1); TOTAL BILIRUBIN 1.6 mg/dL (<0.1-1.0); TOTAL PROTEIN 5.9 g/dL (6.4-8.2)
--- NOTE | 2020-02-14 07:10 | HC ---
[facility] [place] [address] [place] [address] CONSULTATION Name: VEENA VIERA Room #: 248-P ADM IN M.R.#: [id number] Admission: 02/06/20 Attend Phys: Noel Russo MD Discharge: Date of : 60 Report #: [id number] THIS REPORT FOR: cc: [facility] - Clinic physician unknown [facility] - Clinic physician unknown Saul Londono MD ~ CC: NOAH unknown Noel Russo DATE OF SERVICE: 02/06/2020 REASON FOR CONSULTATION: Acute kidney injury. REASON FOR PRESENTATION: Shortness of breath. HISTORY OF PRESENT ILLNESS: Those were obtained from the medical chart. The patient has had major issues with her cardiopulmonary status last night and was intubated. She is 59 years old who presented to the Emergency Department with shortness of breath. Details of the history were obtained from the medical chart. She has history of colon cancer, status post colectomy in 2002. She also carries a diagnosis of diabetes mellitus, hypertension and hypothyroidism. She was encephalopathic on her presentation to the Emergency Room. She had an O2 sat of 79%. The patient suffered from a cardiopulmonary arrest and received 1 round of epinephrine and CPR was initiated. Intubation was done in the Emergency Room. Initial laboratory values for the patient revealed that she had a sodium of 135, potassium of 4.6, BUN of 52, creatinine of 3.5. She had significantly elevated liver enzymes. She was admitted to the Intensive Care Unit to address the above-mentioned issues. She had significant lactic acidosis. I was consulted to manage her ongoing renal issues. PAST MEDICAL HISTORY: From the medical chart: 1. Colon cancer, post-chemotherapy and colectomy. 2. Diabetes mellitus. 3. Hypertension. 4. Hypothyroidism. 5. COPD. PAST SURGICAL HISTORY: Colectomy. SOCIAL HISTORY: Unobtainable given the patient's current mental status and intubation status. FAMILY HISTORY: Unobtainable given the patient's current mental status and intubation status. REVIEW OF SYSTEMS: Unobtainable given the patient's current mental status and [facility] [address] [place] [address] CONSULTATION Name: VEENA VIERA Vanessa Room #: 248-P [facility] IN ..#: [id number] Admission: 02/06/20 Attend Phys: Noel Russo MD Discharge: Date of : 60 Report #: [id number] intubation status. PHYSICAL EXAMINATION: GENERAL: The patient is currently maintained on Levophed. VITAL SIGNS: Blood pressure is 101/56. She has a temperature of 36.7. HEAD AND NECK: No jugular venous distention. ET tube in place. CHEST: Decreased air entry bilaterally with minimal rhonchi. CARDIOVASCULAR: No rub detected. ABDOMEN: Soft, nontender. EXTREMITIES: Lower extremities, +1 edema. LABORATORY DATA: Laboratory values reviewed. Blood gas 7.1 pH, pCO2 is 46. ____. Sodium is 135, BUN is 54, creatinine is 3.3. Anion gap is 19. Lactic acid is down to 2.7. ASSESSMENT, IMPRESSION AND PLAN: 1. Acute kidney injury. 2. Acute hypoxic respiratory failure. 3. Post-cardiac arrest. 4. Lactic acidosis. 5. Elevated liver enzyme. 6. Severe sepsis. 7. Hypotension. 8. Hypothyroidism. 9. There seems to be septic shock with many potential differential diagnosis including urinary sources, pneumonitis, COVID-19 infection. At this point, the patient's creatinine seems to be trending down. I will reformulate her IV fluid to address her acidosis. Continue with the pressors. 10. Follow cultures. 11. Follow COVID-19 PCR. 12. ID consultation. 13. Follow urine output. 14. Follow serum electrolytes. 15. Hold any blood pressure medication. 16. Continue hemodynamic, cardiological, pulmonary support per other teams. <ELECTRONICALLY SIGNED> By: Saul Londono MD 02/14/20 0710 0820 0915 Saul Londono MD /nt
--- NOTE | 2020-02-14 10:19 | HC ---
[facility] [place] [address] [place] [address] CONSULTATION Name: VEENA VIERA Room #: 248-P ADM IN M.R.#: [id number] Admission: 02/06/20 Attend Phys: Noel Russo MD Discharge: Date of : 60 Report #: [id number] THIS REPORT FOR: cc: [facility] - Clinic physician unknown [facility] - Clinic physician unknown Dereck Linares MD ~ CC: [facility] unknown Noel Russo DATE OF SERVICE: 02/12/2020 CHIEF COMPLAINT: Gluteal ulceration. HISTORY OF PRESENT ILLNESS: This is a 59-year-old female patient with respiratory failure requiring mechanical ventilation, who is in the intensive care unit. She was noted to have some discoloration to the sacral gluteal region as well as some gluteal ulceration and I have been asked to see her with regard to wound care evaluation. The patient can provide no information specifically about herself. It is noted from her chart that she has diabetes and had developed shortness of breath and encephalopathy and due to progressive respiratory failure, was intubated and has been on a respirator here now for the last several days. LISTED PAST MEDICAL HISTORY: Positive for COPD, hypertension, diabetes, scoliosis and history of colon cancer. SOCIAL HISTORY: Positive for previous alcohol use. She is a current daily smoker. FAMILY HISTORY: Unknown. REVIEW OF SYSTEMS: Not obtainable as the patient is unable to answer questions due to being on a ventilator. MEDICATIONS: Include carbamazepine, Zofran, doxycycline, diltiazem, levothyroxine, tramadol. ALLERGIES: ERYTHROMYCIN. PHYSICAL EXAMINATION: VITAL SIGNS: At this time include temperature 37.0, pulse 63, respiratory rate 20, blood pressure 98/53. GENERAL: This is a chronically ill-appearing female patient who appears to be in minimal distress. HEENT: Head is normocephalic. Nose is clear. Mouth demonstrates she is orotracheally intubated. [facility] [address] [place] [address] CONSULTATION Name: VEENA VIERA Room #: 248-P [facility] IN [facility].#: [id number] Admission: 02/06/20 Attend Phys: Noel Russo MD Discharge: Date of : 60 Report #: [id number] NECK: Supple. LUNGS: Diminished. HEART: Regular rhythm. ABDOMEN: Soft. Bowel sounds present. EXTREMITIES: Examination of the sacral gluteal region demonstrates there appears to be some hyperpigmentation in that location as well as on both of her elbows that would be consistent with some hyperpigmentation associated with chronic pressure from being immobile. The skin is blanchable. Additionally, there are few abrasions to the upper portion to the buttocks bilaterally. These appear to be shear and friction related and do not appear to be pressure ulcerations. Lower extremities are without clubbing or cyanosis and there is no breakdown on the feet. NEUROLOGIC: The patient does open her eyes. She appears to have symmetrical spontaneous motor movements. LABORATORY STUDIES: Include sodium 137, potassium 4.7, chloride 103, CO2 of 31, BUN 37, creatinine 0.5, glucose 165. Hemoglobin A1c is 5.4, lactic acid is 1.7, alkaline phosphatase is elevated at 247. Albumin is low at 2.3. White blood cell count 8.1, hemoglobin 9.0. CLINICAL IMPRESSION: 1. Abrasions to the buttocks bilaterally. 2. Hyperpigmentation to the sacral gluteal region due to chronic immobility. 3. Community-acquired pneumonia, respiratory failure, requiring mechanical ventilation. 4. Hypertension. 5. Type 2 diabetes mellitus. 6. Chronic obstructive pulmonary disease. 7. History of recreational drug use. 8. History of tobacco and alcohol use. 9. Severe protein-calorie malnutrition with albumin 2.2. RECOMMENDATIONS: At this point in time, recommend moisture barrier cream to the sacral gluteal region daily and p.r.n., otherwise be left open to air. She will need low air loss mattress, q. 2 hour turning and positioning, aggressive nutritional support, continuation of current medications. I appreciate being asked to see her in consultation. <ELECTRONICALLY SIGNED> By: Dereck Linares MD 02/14/20 1019 [id number] [id number] Dereck Linares MD /nt
--- NOTE | 2020-02-14 11:06 | NUR ---
WOUND CARE F/U ASSESSED SACRAL BUTTOCKS AREA W/ OBSERVER GRAVITY PROSPECTING MARILIA. AREA HEALING, LESS DISCOLORATION PRESENT, NO OPEN AREAS, ABRASIONS HEALED, NO S/S INFECTION, PT COOPERATIVE, CLEANSED AND PROTECTIVE CREAM APPLIED RECOMMENDATIONS CONT POC, PRESSURE RELIEF, TURN Q 2HOURS, OBSERVER GRAVITY PROSPECTING AWARE
--- NOTE | 2020-02-14 15:25 | NUR ---
Case discussed with the care team. Pt now extubated and on 3liters of O2 per nc. She is sitting up and therapy evals are in progress; PT/OT/ST. Possible transfer out of the ICU later today. Pt oriented to self but somewhat confused. Apparently her dtr Leah called earlier and pt gave consent for staff to speak with her (Leah [phone]). Son Sylvester has been left several messages on his girlfriends phone with no return call. Message left for Leah to contact to help with assessment.Prior level of function uncertain. It appears the pt was living at home and normally a&ox4 and able to mobilize around the home. She is a daily smoker and noted to be non compliant. Hx of COPD and colon CA. Will discuss with the care team tomorrow and re-attempt to visit with the pt and family to determine possible dc needs. Pt is on disability and has an [employer] Medicare plan for f/u care.
--- NOTE | 2020-02-14 18:22 | NUR ---
PT ARRIVED FROM ICU AT APPROX 1815. VSS. O2 SATS WNL ON 3L O2. PT SETTLED AND COMFORTABLE IN BED. WILL GIVE REPORT TO NOC NURSE.
--- NOTE | 2020-02-14 18:30 | NUR ---
assumed care of pt at 0700, pt is a/o times 2-3, pt a gcs of 14. pt c/o pain to lowe back and pain meds administered as ordered. pt has been afibrile. pt noted to be anxious sometimes. pt with orders to be xfered out of ICU. report called and given to accepting nurse.
[2020-02-15] VITALS: BP 147/75
[2020-02-15 03:35] VITALS: BP 151/68
--- NOTE | 2020-02-15 04:45 | NUR ---
SLEPT PART OF SHIFT. REPOSITIONED EVERY 2-3 HOURS FOR COMFORT AND SKIN CARE. SKIN BARRIER USED FOR COCCYX SKIN DISCOLERATION. WORKING ON GOALS AND PLAN OF CARE FOR NOC. PROGRESSING TOWARDS DISCHARGE GOALS SLOWLY. CONTINUE TO ASSES CLOSELY. PATIENT USING YAUNKER TO SUCTION SPUTUM PAST COUGHING UP WHITE THICK.
[2020-02-15 07:30] VITALS: BP 158/75
[2020-02-15 07:30] LABS: ALBUMIN 2.6 g/dL (3.4-5.0); DIRECT BILIRUBIN 0.7 mg/dL (<0.1-0.2); TOTAL BILIRUBIN 1.3 mg/dL (<0.1-1.0); TOTAL PROTEIN 5.9 g/dL (6.4-8.2)
[2020-02-15 08:33] LABS: ALBUMIN 2.6 g/dL (3.4-5.0); CALCIUM 9.2 mg/dL (8.5-10.1); CREATININE 0.4 mg/dL (0.6-1.0); POTASSIUM 4.9 mmol/L (3.5-5.1); TOTAL BILIRUBIN 1.3 mg/dL (<0.1-1.0); TOTAL PROTEIN 5.9 g/dL (6.4-8.2)
--- NOTE | 2020-02-15 08:35 | NUR ---
ASSUMED CARE OF PT AT SHIFT CHANGE, C/O GENERALIZED PAIN ALL OVER. REPORT OF MAX ASSIST X2, ASKED PT AND SHE SAID SHE WALKED ALONE PRIOR TO HOSPITALIZATION. IN THE MIDST OF SPEECH THERAPY TO EVAL SWALLOW. IF PASS WILL CONTACT PHYSICIAN TO RESTART HOME MEDS. PT HAS NOW SHOWN ANY IMPULSIVITY, HAS 02 ON, DOES NOT WEAR AT HOME.DROPPED TO 2L FROM 3L, 97% ON 3L. SAID SHE STOPPED SMOKING.SEE SEPARATE INTERVENTIONS FOR ASSESSMENTS. ENCOURAGED HER TO USE CALL LIGHT FOR ANY NEEDS AND SHE DOES
[2020-02-15 11:55] VITALS: BP 170/94
--- NOTE | 2020-02-15 15:34 | NUR ---
Pt has been evaluated for 5N acute rehab stay and accepted once her hgb is stable. She is working with therapy.[employer] Machine Tender spoke with the pt over the phone and per her request I talked with her dtr Leah via phone also. Leah to call pt in her room on CCU this afternoon. Leah and the pt both report that the pt was indep with gait and adl's in the home prior to admission;however she had has had limited medical care and f/u over the past year. One of the pt's sons was murdered in their front yard last year and it has been difficult for the pt to go out of the house and into the yard since that time. She has been depressed and is a heavy smoker. Right before her admission she had been staying in bed more and more. Pt's dtr Leah is planning on staying with the pt once she is dc'd from rehab as her brother Sylvester who lives with the pt, works a lot of hours. The pt has no dme at home and had never had any HH services. The pt and Leah are receptive to a 5N rehab stay and hope the pt can go home as indep as possible. Care team updated. has a bed available tomorrow if medically ready for dc to rehab. Support provided. Will ask for psych consult as well for depression.
[2020-02-15 16:50] VITALS: BP 125/81
[2020-02-15 20:30] VITALS: BP 126/71
[2020-02-16 00:35] VITALS: BP 106/66
[2020-02-16 04:45] VITALS: BP 122/65
--- NOTE | 2020-02-16 05:19 | NUR ---
SLEPT MOST OF SHIFT PAST HS TRAZADONE. PAIN MEDICATION GIVEN PRN FOR COMFORT. NPO PAST MIDNIGHT FOR POSSIBLE AM PROCEDURE. WORKING ON GOALS AND PLAN OF CARE FOR NOC. PROGRESSING SLOWLY TOWARDS DISCHARGE GOALS. ASSIST TO REPOSITION NEEDED FOR COMFORT AND SKIN CARE. BARRIER CREAM TO COCCYX NEEDED. CONTINUE TO ASSES CLOSELY.
[2020-02-16 06:25] LABS: HEMATOCRIT 27.3 % (37.0-47.0); MCH 32.9 pg (26.0-34.0); MCHC 32.9 g/dL (28.0-37.0); RBC 2.73 mil/uL (4.20-5.00); RDW 15.5 % (10.5-14.5); WBC 8.5 thou/uL (4.0-11.0)
[2020-02-16 06:38] LABS: CALCIUM 8.6 mg/dL (8.5-10.1); CREATININE 0.5 mg/dL (0.6-1.0); MAGNESIUM 1.4 mg/dL (1.8-2.4)
[2020-02-16 07:50] VITALS: BP 121/90
--- NOTE | 2020-02-16 10:13 | NUR ---
WOUND CARE F/U ASSESS SACRAL/BUTTOCKS AREA W/ MANAGER CULTURE ADRIA, AREA HEALING, NO OPEN AREAS, NO S/S INFECTION, COOPERATIVE, PROTECTIVE BARRIER CREAM APPLIED, ORDERED LOW AIR LOSS PUMP FOR BED RECOMMENDATIONS, CONT CURRENT POC, TURN Q 2HOURS AND NOT SITTING LONG PERIODS, LOW AIR LOSS PUMP TO BED MANAGER CULTURE AWARE
[2020-02-16 11:40] VITALS: BP 113/60
[2020-02-16] MEDS ORDERED: DOXYCYCLINE 10100 MG PO (11:50)
[2020-02-16] MEDS ORDERED: SYNTHROID112 MC1 PO (11:50)
[2020-02-16] MEDS ORDERED: MIRALAX17 GM PO (11:50)
[2020-02-16] MEDS ORDERED: PROTONIX40 M4 PO (11:50)
[2020-02-16] MEDS ORDERED: IPRAT-ALBUT 0.5-3 ML INH (11:50)
[2020-02-16] MEDS ORDERED: CULTURELLE KID1 EAC1 PO (11:50)
[2020-02-16] MEDS ORDERED: LOPRESSOR50 PO (11:50)
[2020-02-16] MEDS ORDERED: NORVASC5 MG PO (11:50)
[2020-02-16] MEDS ORDERED: BENICAR40 MG PO (11:50)
[2020-02-16] MEDS ORDERED: PREDNISONE 10 M10 M1 PO (11:50)
--- NOTE | 2020-02-16 12:14 | NUR ---
Pt dcing to 5N acute rehab today. 5N cm to follow for possible hh when she goes home. Dtr Leah can be point person for dc planning along with the pt.
--- NOTE | 2020-02-16 14:58 | NUR ---
PT CARE ASSUMED APPROX 1415. REPORT CALLED BY PREVIOUS NURSE TO RECEIVING NURSE ON 5N. PT DENIES PAIN AND SOA. TRANSFERRED BACK TO BED FOR TRANSPORT TO REHAB PER THE MACHINIST HELPER MARINE REQUEST. ALL BELONGINGS IN PT POSSESSION. RECEIVING NURSE DENIED QUESTIONS OR CONCERNS REGARDING PT AND PT'S POC. LEAVING UNIT AT THIS TIME.
--- NOTE | 2020-02-16 15:09 | NUR ---
ASSUMED CARE OF PT AT SHIFT CHANGE. ASSESSMENTS CHARTED. MEDS GIVEN PER MAR. PT A&OX4, C/O GENERALIZED PAIN TREATED WITH PO MEDS. PATIENT WORKED WITH PT/OT. CALL REPORT TO REHAB NURSE ON 5N. GAVE REPORT TO RECEIVING NURSE ON CCU, BEFORE TRANSFER THIS NURSE WAS MOVED TO ICU.
[2020-02-16] MEDS ORDERED: DOXYCYCLINE 10100 M2 PO (15:50)
== END 2020-02-16 15:02 | DRG 870 ==
LOC: ER 23:32 → ICU 02-06 02:14 → 2N 02-06 02:14 → EROBS 02-06 02:14 → ICU 02-06 03:55 → 2N 02-14 18:08
PROVIDERS: Emergency Medicine Emergency Medical Services; Hospitalist; Internal Medicine; Internal Medicine Cardiovascular Disease; Internal Medicine Pulmonary Disease; Nurse Practitioner; Nurse Practitioner Family; Pediatrics; Specialist; ADMIT Internal Medicine
PROC: 0BH17EZ Insertion of Endotracheal Airway into Trachea, Via Natural or Artificial Opening (ICD-10-PCS; principal; 2020-02-06)
PROC: 5A1955Z Respiratory Ventilation, Greater than 96 Consecutive Hours (ICD-10-PCS; principal; 2020-02-06)
PROC: 02HV33Z Insertion of Infusion Device into Superior Vena Cava, Percutaneous Approach (ICD-10-PCS; principal; 2020-02-06)
DX: A41.9 Sepsis, unspecified organism (principal); R65.21 Severe sepsis with septic shock; I46.9 Cardiac arrest, cause unspecified; J96.22 Acute and chronic respiratory failure with hypercapnia; J96.21 Acute and chronic respiratory failure with hypoxia; G92 Toxic encephalopathy; K72.00 Acute and subacute hepatic failure without coma; E43 Unspecified severe protein-calorie malnutrition; J69.0 Pneumonitis due to inhalation of food and vomit; N17.9 Acute kidney failure, unspecified; N39.0 Urinary tract infection, site not specified; J44.1 Chronic obstructive pulmonary disease with (acute) exacerbation; E87.2 Acidosis; K83.09 Other cholangitis; E11.9 Type 2 diabetes mellitus without complications; E03.9 Hypothyroidism, unspecified; I10 Essential (primary) hypertension; M06.9 Rheumatoid arthritis, unspecified; F17.210 Nicotine dependence, cigarettes, uncomplicated; R74.0 Nonspecific elevation of levels of transaminase and lactic acid dehydrogenase [LDH]; D64.9 Anemia, unspecified; M41.9 Scoliosis, unspecified; G89.29 Other chronic pain; S30.810A Abrasion of lower back and pelvis, initial encounter; X58.XXXA Exposure to other specified factors, initial encounter; L81.8 Other specified disorders of pigmentation; F10.10 Alcohol abuse, uncomplicated; Y99.8 Other external cause status; Z88.8 Allergy status to other drugs, medicaments and biological substances; Z79.891 Long term (current) use of opiate analgesic; Z79.899 Other long term (current) drug therapy; Z91.14 Patient's other noncompliance with medication regimen; Z68.26 Body mass index [BMI] 26.0-26.9, adult; Z03.818 Encounter for observation for suspected exposure to other biological agents ruled out; Z99.81 Dependence on supplemental oxygen; Y93.89 Activity, other specified; Z90.49 Acquired absence of other specified parts of digestive tract; Y92.89 Other specified places as the place of occurrence of the external cause
CPT/HCPCS: 10078; 10081

== ENCOUNTER 2020-02-16 09:45 | Inpatient (IN) | payer OTHER ==
[~2020-02-16] VITALS: Ht 160 cm; Wt 62.0 kg
[2020-02-16] MEDS ORDERED: NORVASC5 MG PO (11:50)
[2020-02-16] MEDS ORDERED: PROTONIX40 M4 PO (11:50)
[2020-02-16] MEDS ORDERED: MIRALAX17 GM PO (11:50)
[2020-02-16] MEDS ORDERED: DOXYCYCLINE 10100 MG PO (11:50)
[2020-02-16] MEDS ORDERED: SYNTHROID112 MC1 PO (11:50)
[2020-02-16] MEDS ORDERED: PREDNISONE 10 M10 M1 PO (11:50)
[2020-02-16] MEDS ORDERED: LOPRESSOR50 PO (11:50)
[2020-02-16] MEDS ORDERED: BENICAR40 MG PO (11:50)
[2020-02-16] MEDS ORDERED: CULTURELLE KID1 EAC1 PO (11:50)
[2020-02-16] MEDS ORDERED: IPRAT-ALBUT 0.5-3 ML INH (11:50)
[2020-02-16 15:10] VITALS: BP 116/75
[2020-02-16] MEDS ORDERED: DOXYCYCLINE 10100 M2 PO (15:50)
--- NOTE | 2020-02-16 16:17 | NUR ---
ORDER OBTAINED TO DC RIJ, 25CM JACC REMOVED, PRESSURE HELD X5 MINUTES. OCCLUSIVE DRG APPLIED. PT TOLERATED WELL
[2020-02-16 19:40] VITALS: BP 121/68
--- NOTE | 2020-02-16 20:12 | NUR ---
ASSUMED CARE OF PT AT 1500. PT BROUGHT TO UNIT BY NURSE, REPORT RECEIVED PRIOR TO BRINGING PT TO UNIT. ADMISSION EDUCATION COMPLETED, MEDICATIONS FAXED TO PHARMACY, CONSULTS CALLED, ADMISSION HX AND ASSESSMENT COMPLETED. PT IS A&OX4, BRADYCARDIC, LUNG SOUNDS COARSE IN ALL LOBES, REQUIRES 4LO2 VIA NC, VITAL SIGNS STABLE. BOWEL SOUNDS ACTIVE, NO REPORTED BM SINCE 02/10, WEISS CATHETER IN PLACE, SKIN INTACT WITH RED COCCYX. OBTAINED ORDER TO DC TRIPLE LUMEN IJ, IV TEAM REMOVED, DRESSIG IN PLACE. FALL PRECAUTIONS IN PLACE AND NURISNG WILL CONTIUE TO MONITOR.
--- NOTE | 2020-02-17 05:21 | NUR ---
ASSUMED PT CARE AROUND 193. AXOX3. VSS. O2 NC 4LPM WITHOUT SOA/SOB. NO S/S ACUTE DISTRESS NOTED OR REPORTED AT THIS TIME. WILL CONT TO MONITOR FOR ANY CHANGES IN CONDITION.
[2020-02-17 06:17] LABS: HEMATOCRIT 36.1 % (37.0-47.0); MCH 33.3 pg (26.0-34.0); MCHC 31.6 g/dL (28.0-37.0); RBC 3.43 mil/uL (4.20-5.00); RDW 16.4 % (10.5-14.5); WBC 12.2 thou/uL (4.0-11.0)
[2020-02-17 06:30] LABS: HEMOGLOBIN 11.4 gm/dL (12.0-15.0); MCV 105.4 fL (80.0-100.0)
[2020-02-17 06:33] LABS: CALCIUM 9.1 mg/dL (8.5-10.1); CREATININE 0.5 mg/dL (0.6-1.0); MAGNESIUM 1.6 mg/dL (1.8-2.4); POTASSIUM 4.8 mmol/L (3.5-5.1)
[2020-02-17 08:00] VITALS: BP 147/74
--- NOTE | 2020-02-17 10:17 | NUR ---
ASSUMED CARE AT 0700. PATIENT IS ALERT AND ORIENTED X3. PATIENT HAS LOWER EXTREMITY WEAKNESS. PATIENT IS UP WITH ASSIST OF 2 STAFF TO THE BATHROOM. PATIENT HAS A WEISS CATHETER DRAINING GRIS COLORED URINE. PATIENT HAS URINARY RETENTION. LUNGS ARE COARSE AND DEMINISHED. ABD IS SOFT WITH BS X4 UP IN THE W/C FOR BREAKFAST. FALL AND SAFETY PROTOCOLS IN-PLACE. DENIES PAIN AT THIS TIME. CONTINUES TO PROGESS TOWARDS D/C GOALS SLOWLY. WILL CONTINUE TO MONITER.
[2020-02-17 20:10] VITALS: BP 113/69
--- NOTE | 2020-02-18 00:50 | NUR ---
TOOK OVER PT CARE AT 1900. ASSESSMENT DONE AND VSS. COARSE LUNGS. MEDS GIVEN AND WELL TOLERATED. FALL PRECAUTIONS IN PLACE. HOURLY ROUNDING. CALL LIGHT IN REACH. WILL CONTINUE TO MONITOR.
[2020-02-18 05:18] LABS: CALCIUM 8.4 mg/dL (8.5-10.1); CREATININE 0.5 mg/dL (0.6-1.0); MAGNESIUM 1.4 mg/dL (1.8-2.4); POTASSIUM 4.4 mmol/L (3.5-5.1)
[2020-02-18 06:48] LABS: HEMATOCRIT 30.6 % (37.0-47.0); HEMOGLOBIN 9.8 gm/dL (12.0-15.0); MCH 32.6 pg (26.0-34.0); MCHC 32.1 g/dL (28.0-37.0); MCV 101.7 fL (80.0-100.0); RBC 3.01 mil/uL (4.20-5.00); RDW 15.9 % (10.5-14.5); WBC 7.3 thou/uL (4.0-11.0)
[2020-02-18 07:41] VITALS: BP 133/71
--- NOTE | 2020-02-18 10:14 | NUR ---
ASSUMED CARE AT 0700. PATIENT IS ALERT AND ORIENTED X4. GARCIA'S, LEASE ANALYST ARE EQUAL. LUNG ARE COARSE AND DEMINISHED WITH NON-PRODUCTIVE COUGH. ABD IS SOFT WITH BSX4. PATIENT HAS WEISS CATHETER TO DD, DRAINING GRIS COLORED URINE. PATIENT IS MAX ASSIST OF [address] HESTER HERE TO SEE PATIENT. FALL AND SAFETY PROTOCOLS IN PLACE. C/O PAIN NON-CARDIAC R/T COUGHING. DR RESENDIZ TO SEE PATIENT (PULMONARY). C/O BACK PAIN. MEDICATED WITH PRN PAIN MED. CONTINUES TO PROGRESS SLOWLY TOWARDS D/C GOALS. WILL CONTINUE TO MONITER.
--- NOTE | 2020-02-18 18:10 | NUR ---
1000 DR. HESTER HERE TO SEE PATIENT . PER HIS REQUEST HE WOULD LIKE DR. RESENDIZ TO SEE PATIENT ON ROUNDS IN A.M. 02/19/20. ANSWERING SERVICE NOTIFIED
[2020-02-18 19:15] VITALS: BP 99/66
--- NOTE | 2020-02-19 04:02 | NUR ---
OXYGEN CONTINUES, COARSE LUNG SOUNDS, GUAIFENESIN INITIATED 02/17, EXPLAINED TO PATIENT THAT LIKE TAKING ROBITUSSIN Q 4 HOURS, TAKING GUAIFENESIN PILLS EVERY 12 HOURS WILL MAKE HER COUGH MORE EFFICIENTLY. PAIN MED AT 2000 AND TRAMADOL AT 2200 SEEM EFFECTIVE PATIENT IS SLEEPING BETWEEN OUR INTERRUPTIONS TO HEAVE HER SWITCH SIDES. ISELA ISSA DD. SHARES WITH STAFF THAT SHE WAS ON A VENTILATOR FOR 2 WEEKS AND HAS BEEN WEEK EVER SINCE
[2020-02-19 04:11] LABS: HEMATOCRIT 29.4 % (37.0-47.0); HEMOGLOBIN 9.6 gm/dL (12.0-15.0); MCH 33.3 pg (26.0-34.0); MCHC 32.6 g/dL (28.0-37.0); MCV 102.4 fL (80.0-100.0); RBC 2.87 mil/uL (4.20-5.00); RDW 15.3 % (10.5-14.5)
[2020-02-19 04:30] LABS: ANION GAP 5 mmol/L (7-16); BUN 29 mg/dL (7-18); CHLORIDE 106 mmol/L (98-107); CO2 26 mmol/L (21-32); CREATININE 0.5 mg/dL (0.6-1.0); GLUCOSE 87 mg/dL (74-106); MAGNESIUM 1.4 mg/dL (1.8-2.4); POTASSIUM 4.3 mmol/L (3.5-5.1); SODIUM 137 mmol/L (136-145)
[2020-02-19 07:50] VITALS: BP 129/81
--- NOTE | 2020-02-19 08:52 | EKG ---
[facility] [place] [address] ELECTROCARDIOGRAM REPORT Name: VEENA VIERA Room #: 515- ADM IN M.R.#: [id number] Admission: 02/16/20 Attend Phys: Nelson Mclean MD Discharge: Date of : 60 Report #: [id number] THIS REPORT FOR: cc: [facility] - Clinic physician unknown [facility] - Clinic physician unknown Souleymane Ram MD [facility] THIS REPORT FOR: //name// [facility] Test Date: 2020-02-19 Test Time: 08:00:19 Pat Name: VEENA VIERA Department: Room: [facility] Gender: F Vp Production: ROLANDA : 1960 Requested By: Nelson Mclean Order Number: [id number] MD: Souleymane Ram Measurements Intervals [place] Rate: 68 P: 67 WI: 145 QRS: -46 QRSD: 89 T: 5 QT: 419 QTc: 446 Interpretive Statements Sinus rhythm Abnormal R-wave progression, early transition Cannot rule out inferior infarct, old Compared to ECG 02/12/2020 08:53:19 No significant change was found Electronically Signed On 02-19-2020 8:51:17 CDT by Souleymane Ram [email or web address] <ELECTRONICALLY SIGNED> By: Souleymane Ram MD, [facility] 02/19/2051 9 08 Souleymane Ram MD, [facility] /EPI
[2020-02-19 10:13] LABS: TROPONIN-I <0.06 ng/mL (<0.06)
[2020-02-19 11:30] LABS: FOLIC ACID 3.6 ng/mL (8.6-58.9)
--- NOTE | 2020-02-19 13:53 | NUR ---
Nutrition: pt admitted to rehab unit following acute care stay for respiratory failure, septic shock/UTI. Required intubation ~2 weeks and enteral feedings on acute. Pt c/o weakness due to this and suspect muscle mass loss. Rehab admitting diagnosis is toxic/hepatic encephalopathy, medical complexity. Weights 129-149# on acute. Current 136#. Pt unsure of UBW. Requires modified consistency diet per ST but plan videoswallow and possible upgrade due to improved CXR. Low BG noted and treatment resulted in BG in low 200s. Pt also on steroid. Follow trends. Bilateral buttocks redness. PO documented as 25-75% of meals, highly variable. Observed 80% intake at lunch today and pt feels she ate better today because meal was ordered. RD encouraged 100% intake of protein foods first. Folate level low at 3.6, REC supplementation. RD will offer glucerna daily. Monitor nutritional parameters but place as low risk.
--- NOTE | 2020-02-19 15:19 | NUR ---
ASSUMED CARES AT 0700. PT C/O CHEST PAIN, EKG NORMAL, STUDENT NURSE ASSESSED PT AND CLEARED PT FOR THERAPY. PAIN MEDICATION ADMINISTERED PER ORDER. BG LOW (52) THIS AM, CORRECTED AND STABILIZED. WEISS TO BE DC'D THIS AFTERNOON PER ORDER, FOLLOW POST-WEISS REMOVAL PROTOCOL. REDNESS AROUND SACRAL AREA WITH OLD SCARS/ DISCOLORED PATCHES, SITE CLEANED AND BARRIER CREAM APPLIED. UP WITH MAX ASSIST. Q1H VISUAL CHECKS. CALL LIGHT WITHIN REACH. FALL PRECAUTIONS IN PLACE
--- NOTE | 2020-02-19 15:53 | NUR ---
chart review. cm tried to reach pt son shelia, a female answered phone stated " this is no longer his phone with in last month, i am his ex and he has moved on"/female. cm spoke with pt chantel who preferrs going by beth. intro to cm and team meeting. " oh good, i guess since my daughter scott is not working and has no place to live she going to stay with me. feel safe at home but it took awhile after my son was murdered in the front yard to feel ok, it hurts. independent. my son and his baby mommeaghan are recent split up and he don't have a phone so she cant get a hold of him but he works with her dad. i would like oxygen if i need it at home. have breathing tx at home, they make me shack"/beth. education that have to qualify for home oxygen and she already been weaned off o2 if things change will check into home o2. " ok thanks"/pt. will cont following as needed for dc needs.
[2020-02-19 20:01] VITALS: BP 124/70
--- NOTE | 2020-02-20 03:06 | NUR ---
NO LONGER REQUIRING OXYGEN, OCCASIONALLY COUGHING. BLOOD SUGAR 208 AT HS, GIVEN HS SNACK DUE TO LOW BLOOD SUGAR YESTERDAY AM. ENCOURAGED TO TAKE DEEP BREATHS AND TURN SIDE TO SIDE.
[2020-02-20 06:58] LABS: DIRECT BILIRUBIN 0.3 mg/dL (<0.1-0.2); TOTAL BILIRUBIN 0.7 mg/dL (<0.1-1.0); TOTAL PROTEIN 6.7 g/dL (6.4-8.2)
[2020-02-20 08:07] VITALS: BP 124/69
--- NOTE | 2020-02-20 10:39 | NUR ---
cm delivered vendor form, list of choice and senior blue book for bedside nurse to take to [facility] for dc resources.
[2020-02-20 20:07] VITALS: BP 134/70
--- NOTE | 2020-02-20 23:17 | NUR ---
TOOK OVER PT CARE AT 1900. ASSESSNENT DONE AND VSS. COURSE LUNGS. MEDS GIVEN AND WELL TOLERATED. FALL PRECAUTIONS IN PLACE. HOURLY ROUNDING. CALL LIGHT IN PLACE. WILL CONTINUE TO MONITOR.
[2020-02-21 08:00] VITALS: BP 141/96
--- NOTE | 2020-02-21 18:10 | NUR ---
ASSUMED CARE OF PT AT 0700. PT IS A&OX4 AND VITAL SIGNS ARE STABLE. PT REPORTS BACK PAIN, MANGED WITH PO MEDCIAITONS, PARTICIPATED IN SCHEUDLED THERAPIES. ACCU CHECKS AT MEALS. PT TURNED Q2H, BARRIER CREAM APPLIED WITH TURNS. HR REGULAR, LUNG SOUNDS COARSE, BOWEL SOUNDS ACTIVE. FALL PRECAUTIONS IN PLACE AND NURSING WILL CONTINUE TO MONITOR.
[2020-02-21 19:24] VITALS: BP 120/84
--- NOTE | 2020-02-22 03:12 | NUR ---
ASSESSED AT START OF SHIFT PT A&OX4 C/O BACK PAIN. PAIN MEDS GIVEN SEE EMAR. VSS. ON R/A, LUNGS COARSED. TURNS DONE AND ON A LOW AIRLOSS PUMP. FALL PREC IN PLACE AND CALL LIGHT IN REACH WILL CONT WITH POC TILL EOS.
[2020-02-22 08:00] VITALS: BP 161/91
--- NOTE | 2020-02-22 12:55 | NUR ---
ASSUMED CARE AT 0700. PATIENT IS ALERT AND ORIENTED X4. PATIENT GARCIA, TAX SPECIALIST ARE EQUAL. LUNGS ARE COARSE AND DEMINISHED. PATIENT CONTINUES ON RESPIRATORY TX. PATIENT ATE BREAKFAST IN BED. FALL AND SAFETY PROTOCOLS IN PLACE. C/O BACK PAIN. MEDICATED WITH PRN PAIN MED. CONTINUES TO PROGRESS SLOWLY TOWARDS D/C GOALS. BOTTOM BRUISED. CONTINUES ON AIR LOSS MATTRESS. UP TO THE DINING ROOM FOR LUNCH WITH S.T. WILL CONTINUE TO MONITER.
[2020-02-22 20:17] VITALS: BP 129/74
--- NOTE | 2020-02-23 02:17 | NUR ---
TOOK OVER PT CARE AT 1900. ASSESSMENT DONE AND VSS. MEDS GIVEN AND WELL TOLERATED. FALL PRECAUTIONS IN PLACE. SLEEPING ON/OFF OVERNIGHT. COARSE LUNGS. HOURLY ROUNDING. CALL LIGHT IN REACH. WILL CONTINUE TO MONITOR.
[2020-02-23 07:30] VITALS: BP 162/87
[2020-02-23 08:25] LABS: ALBUMIN 2.7 g/dL (3.4-5.0); DIRECT BILIRUBIN 0.4 mg/dL (<0.1-0.2); TOTAL BILIRUBIN 0.6 mg/dL (<0.1-1.0); TOTAL PROTEIN 5.7 g/dL (6.4-8.2)
--- NOTE | 2020-02-23 11:03 | H ---
[facility] [place] [address] HISTORY AND PHYSICAL Name: VEENA VIERA Room #: 515-P ADM IN M.R.#: [id number] Admission: 02/16/20 Attend Phys: Nelson Mclean MD Discharge: Date of : 60 Report #: [id number] THIS REPORT FOR: cc: [facility] - Clinic physician unknown [facility] - Clinic physician unknown Nelson cMlean MD ~ CC: Nelson Mclean [facility] unknown DATE OF SERVICE: 02/16/2020 HISTORY AND PHYSICAL AND POST-ADMISSION PHYSICIAN EVALUATION HISTORY OF PRESENT ILLNESS: The patient has been admitted for acute in-hospital inpatient rehabilitation. Please see the full history and physical documentation. Agree with the documentation as is noted. The patient is a 59-year-old female originally admitted to the hospital on 02/06/2020 with progressive shortness of breath, weakness and sustained a cardiac/respiratory arrest, was given CPR, epinephrine, admitted to the ICU. COVID-19 ruled out. She was noted to have acute renal insufficiency. She was given IV antibiotics, steroids, nebulizers and was extubated on 02/13/2020 and has been on nasal cannula O2. She has a history of COPD, tobacco abuse, ETOH abuse, colon cancer, and medical noncompliance. She has been followed by multiple natural remedy consultant physicians. She has had problems with hepatic function with elevation of LFTs, possibly secondary to liver shock versus alcoholic hepatitis or both. She is being followed regarding anemia. As noted, she developed encephalopathy and also with her prolonged intubation and multiorgan involvement was noted to be considerably weak with findings consistent with critical illness myopathy. She has had a marked functional decline from her premorbid status. She has now been admitted for acute in-hospital inpatient rehabilitation. PAST MEDICAL HISTORY, SOCIAL HISTORY, ALLERGIES, AND HABITS: Please see the history and physical documentation. MEDICATIONS: As noted. REVIEW OF SYSTEMS: Did not offer any current complaints of chest pain, no shortness of breath. Some frustration with her current status. She does have some chronic arthritic complaints, which are not new. No complaints of leg swelling. She does have some complaints of fatigue. PHYSICAL EXAMINATION: GENERAL: The patient was seen later yesterday, was in no distress. VITAL SIGNS: Last recorded temperature 97.3, pulse 97, respirations 20, and blood pressure 147/74 on 4 liters nasal cannula. HEENT: Appeared to be benign. [address] [address] HISTORY AND PHYSICAL Name: VEENA VIERA Room #: 515-P [facility] IN .R.#: [id number] Admission: 02/16/20 Attend Phys: Nelson Mclean MD Discharge: Date of : 60 Report #: [id number] NEUROLOGIC: There is some latency to her responses. Tends to be forgetful. Normocephalic. CHEST: Some decreased breath sounds throughout, diffuse. CARDIOVASCULAR: Regular rate and rhythm. ABDOMEN: Bowel sounds positive, nontender. GENITOURINARY AND RECTAL: Deferred. EXTREMITIES: Functional range of motion of both upper extremities, medical biller coder are equal, but weak. Lower extremities, she does have some proximal lower extremity weakness, probably a grade 3 to 3+, distally she is a little better, probably a 3+ maybe 4-. She has been needing at least a mod assist to come to stand and has been taking some small steps to the chair. She does have a Ahn catheter in place. ASSESSMENT: 1. Toxic metabolic encephalopathy. 2. Critical illness myopathy. 3. Status post cardiac arrest, 02/06/2020. 4. Acute respiratory failure, status post extubation on 02/13/2020. 5. Acute renal insufficiency. 6. 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 7. Chronic obstructive pulmonary disease. 8. Type 2 diabetes mellitus. 9. Anemia. 10. History of medical noncompliance. PLAN: The patient has been admitted for acute in-hospital inpatient rehabilitation. From a post-admission physician evaluation perspective, there are no relevant changes since the preadmission screening. Please see the above review of prior and current medical and functional conditions and comorbidities. Please see the patient's previous and current functional status. As far as risk of complication, there are multiple medical comorbidities as noted above. Initial plan of care involves the interdisciplinary acute inpatient rehabilitation program. Measurable functional goals would be for the patient to become modified independent with transfers, mobility and ADLs. Prognosis is reasonably good. Estimated length of stay probably at least 10 days to 2 weeks and likely longer if warranted. Potential barriers would include her multiple medical comorbidities and decreased functional status. Please see the history and physical documentation and agree with the findings as noted. <ELECTRONICALLY SIGNED> By: Nelson Mclean MD 02/23/20 1103 [id number] Nelson Mclean MD /nt
--- NOTE | 2020-02-23 11:03 | PLAN ---
[facility] [place] [address] [place] [address] REHAB UNIT PLAN OF CARE Name: VEENA VIERA Room #: 515-P [facility] IN M.R.#: [id number] Admission: 02/16/20 Attend Phys: Nelson Mclean MD Discharge: Date of : 60 Report #: [id number] THIS REPORT FOR: //name// CC: Nelson Mclean [facility] unknown DATE OF SERVICE: 02/19/2020 PROGRESS NOTE/OVERALL PLAN OF CARE The patient had some chest discomfort this morning. EKG was obtained, which revealed normal sinus rhythm, some nonspecific ST abnormalities, noted to be unchanged as per discussion with Cardiology. They went to see her this morning as well. The pain appears to be pleuritic. She was not in any real distress. She has been working with therapies with transfers at a max assist level. Gait is max assist 3 steps front-wheeled walker. In occupational therapy, lower body dressing is moderate assistance, upper body dressing is supervision. Speech therapy, the patient is on a mechanical soft diet with thin liquids. She does have moderate memory deficits. ASSESSMENT: 1. Toxic metabolic encephalopathy. 2. Critical illness myopathy. 3. Status post cardiac arrest, 02/06/2020. 4. Acute respiratory failure, status post extubation on 02/13/2020. 5. Acute renal insufficiency. 6. 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 7. Chronic obstructive pulmonary disease. 8. Diabetes mellitus type 2. 9. Anemia. 10. History of medical noncompliance. PLAN: The overall plan of care is based on the preadmission screen, post-admission physician evaluation and information garnered from therapy assessments. 1. Estimated length of stay is probably at least 10 days to 2 weeks. 2. Medical prognosis is reasonably good. 3. Anticipated interventions includes the interdisciplinary acute inpatient rehabilitation program. 4. Anticipated functional outcomes would be for the patient to improve as far as transfers, gait mobility, ADLs, cognition, so she can return back to the home setting. 5. Discharge destination, will be back where she lives with her son. [facility] [address] [place] [address] REHAB UNIT PLAN OF CARE Name: MARKJENNYJOYCELYNVEENA L Room #: 515-P ADM IN .R.#: [id number] Admission: 02/16/20 Attend Phys: Nelson Mclean MD Discharge: Date of : 60 Report #: [id number] therapy by discipline includes PT, OT and speech 1 hour per day each five days a week throughout the duration of the acute inpatient rehabilitation stay. <ELECTRONICALLY SIGNED> By: Nelson Mclean MD 02/23/20 1103 1230 [id number] Nelson Mclean MD /RIVAS
--- NOTE | 2020-02-23 18:24 | NUR ---
ASSUMED CARE OF PT AT 0700. PT IS A&OX4 AND VITAL SIGNS ARE STABLE. PT REPORTS BACK PAIN, MANAGED WITH PO MEDICAITONS, PT PARTICIPATED IN SCHEDULED THERAPIES. ACCU CHECKS ACHS AND MANAGED WITH INSULIN PER ORDERS. HR REGULAR, LUNG SOUNDS COARSE, BOWEL SOUDNS ACTIVE. FALL PRECAUTIONS IN PLACE. NURSING WILL CONTINUE TO MONITOR.
[2020-02-23 20:37] VITALS: BP 123/83
--- NOTE | 2020-02-24 00:44 | NUR ---
TOOK OVER PT CARE AT 1900. ASSESSMENT DONE AND VSS. MEDS GIVEN AND WELL TOLERATED. FALL PRECAUTIONS IN PLACE. HOURLY ROUNDING. CALL LIGHT IN REACH. WILL CONTINUE TO MONITOR.
[2020-02-24 07:30] VITALS: BP 165/80
--- NOTE | 2020-02-24 15:14 | NUR ---
ASSUMED CARE AT 0700, PT A&O X 4, NO ACUTE DISTRESS DURING SHIFT. VSS O2 ON RA WITH JOAN RESP TX FOR CONGESTION. PT C/O BACK & NO CARDIAC CHEST PAIN RELIEVED WITH PRN NORCO. PARTICIPATED IN JOAN THERAPIES. CONTINENT OF B&B, USES BSC AND BEDPAN, ZGUARD FOR SACRAL REDNESS. BG ACHS WITH SS NEEDED. RESTING IN BED, CALL LIGHT WITHIN REACH, WILL CONTINUE TO MONITOR PER POC.
[2020-02-24 19:10] VITALS: BP 144/92
--- NOTE | 2020-02-25 03:08 | NUR ---
assumed care at approx 1900 evening 02/23. pt alert and oriented x4, appropriate and cooperative. pt incontinent of urine requiring complete bed change. pt took hs meds and pain pill with water tolerating well. pt appears to be sleeping soundly with hourly rounding checks. bed alarm on and call light in reach. will continue to monitor.
[2020-02-25 07:34] VITALS: BP 150/73
--- NOTE | 2020-02-25 10:23 | NUR ---
ASSUMED CARE AT 0700. PATIENT IS ALERT AND ORINETEDX4. PATIENT GARCIA'S, GRIPARE EQUAL. LUNGS ARE COARSE AND CONGESTED AND PATIENT CONTINUES ON RESPIRATORY TX. ABD IS SOFT WITH BSX4. VOIDS GRIS COLORED URINE PER BEDPAN. UP IN BED FOR BREAKFAST. FALL AND SAFETY PROTOCOLS IN PLACE. C/O PAIN IN HER BACK. MEDICATED WITH PRN PAIN MED. CONTINUES TO PROGRESS TOWARDS D/C GOALS. HILDA RIDDLE TO JESUSITAER.
--- NOTE | 2020-02-25 17:40 | NUR ---
ASSUMED CARE OF THE PATIENT AT 1115, PATIENT ALERT AND ORIENTED X 4. UP IN W/C UPON ARRIVAL TO THE ROOM. PATIENT C/O PAIN WITH BACK AREA AND CHEST AREA/NONCARDIAC, SHE RECEIVED TRAMADOL 1 TABLET AND HYDROCODONE 1 TABLET THIS SHIFT. PATIENT HAS MOIST COUGH WITH COARSE LUNGS, SHE RECEIVES BREATHING TREATMENTS SCHEDULED. BED CHANGED THIS THIS RN, PATIENT PUT BACK TO BED. PATIENT HAS LABS IN AM. WILL CONTINUE TO MONITOR.
[2020-02-25 19:30] VITALS: BP 151/97
--- NOTE | 2020-02-26 03:17 | NUR ---
assumed care at approx 1900 evening 02/24. pt alert and oriented x4 resting and watching tv at change of shift. pt stated she had a fairly good day and was tired at hs. pt took hs meds with water tolerating well. pt appears to be sleeping soundly with hourly rounding checks. bed alarm on and call light in reach. will continue to monitor.
[2020-02-26 06:24] LABS: BASOPHILS 0.8 % (0.0-2.0); EOSINOPHILS 1.2 % (0.0-3.0); HEMATOCRIT 29.9 % (37.0-47.0); HEMOGLOBIN 9.7 gm/dL (12.0-15.0); LYMPHOCYTES 31.5 % (24.0-44.0); MCHC 32.6 g/dL (28.0-37.0); MCV 101.2 fL (80.0-100.0); MONOCYTES 5.8 % (1.0-8.0); PLATELET COUNT 140 thou/uL (150-400); POLYS 60.7 % (36.0-66.0); RBC 2.95 mil/uL (4.20-5.00); RDW 16.1 % (10.5-14.5)
[2020-02-26 06:34] LABS: CALCIUM 8.6 mg/dL (8.5-10.1); CREATININE 0.6 mg/dL (0.6-1.0); MAGNESIUM 1.5 mg/dL (1.8-2.4); POTASSIUM 3.8 mmol/L (3.5-5.1)
[2020-02-26 07:20] VITALS: BP 132/74
--- NOTE | 2020-02-26 12:39 | NUR ---
ASSUMED CARE AT 0700, PT A&O X 4, NO ACUTE DISTRESS DURING SHIFT. VSS, O2 ON RA. PT C/O PAIN AND RECEIVED PRN NORCO WITH SOME RELIEF. BG ACHS, SS NEEDED WITH MEALS. TOLERATES MEDS WHOLE WITH WATER. PARTICIPATED IN JOAN THERAPIES. CONTINENT OF B&B, LARGE FORMED BM TODAY, ON JOAN COLACE, REFUSES MIRALAX. SITTING IN CHAIR, CALL LIGHT WITHIN REACH, WILL CONTINUE TO MONITOR PER POC.
--- NOTE | 2020-02-26 13:13 | NUR ---
Nutrition followup: Pt continues on rehab unit on mechanically altered chopped diet. ST assessing for diet upgrade today. Pt eating well, 75-100% of meals, Glucerna daily. Variable intakes recorded of supplement. Folic acid started for low level of 3.6, Also on vitamin D supplementation. No new weight since 02/15. Recommend obtaining new weight. Continue as low risk.
[2020-02-26 19:30] VITALS: BP 135/60
--- NOTE | 2020-02-27 01:39 | NUR ---
UP TO BSC STAND PIVOT ASSIST OF ONE WITH GAIT BELT, VOIDING CLEAR YELLOW. HAD MELATONIN AND PAIN MED AT HS, IS SLEEPING NOW. NOTICES LOW AIR LOSS EFFECT OF BED. HAS TURNED SELF TO HER LEFT SIDE.
[2020-02-27 07:20] VITALS: BP 120/76
--- NOTE | 2020-02-27 14:11 | NUR ---
team meeting, recommendation: 2 view cxray today. still on RA, she is getting btx. possible needs fww. dc 03/07 [facility] ( pt, ot, st, nurse and sw) outpt follow up with dr mohamud and possible follow up with outpt neuro pysch [phone] after dc, family assist with pills and bills. refrain from alcohol drinking.
--- NOTE | 2020-02-27 17:33 | NUR ---
ASSUMED CARE AT 0700, PT A&O X 4, NO ACUTE DISTRESS DURING SHIFT. VSS, 02 ON RA. PT CONTINUES TO C/O PAIN RELIEVED WITH PRN NORCO. PARTICIPATED IN JOAN THERAPIES, TOLERATES MEDS WITH WATER. BG ACHS, NEEDED WITH MEALS. INCONTINENT AT TIMES, VOIDING JOAN STARTED TODAY, Q2H DURING DAYSHIFT, Q4H AT NIGHT. SITTING IN CHAIR, CALL LIGHT WITHIN REACH, WILL CONTINUE TO MONITOR PER POC.
[2020-02-27 19:00] VITALS: BP 116/70
--- NOTE | 2020-02-28 01:36 | NUR ---
APPRECIATES PAIN MED OFTEN EVERY 4 HOURS, PLAN TIMED VOID Q 4 HOURS AND WE WILL TRY TO CO-ORDINATE THESE 2 THINGS. TURNING SELF TO SIDES ON A LOW AIR-LOSS THERAPY BED. BLOOD SUGAR 159 AT HS
[2020-02-28 07:46] VITALS: BP 136/74
[2020-02-28 10:08] LABS: ALBUMIN 2.7 g/dL (3.4-5.0); CALCIUM 8.4 mg/dL (8.5-10.1); CREATININE 0.6 mg/dL (0.6-1.0); POTASSIUM 3.6 mmol/L (3.5-5.1); TOTAL BILIRUBIN 0.4 mg/dL (<0.1-1.0); TOTAL PROTEIN 5.7 g/dL (6.4-8.2)
--- NOTE | 2020-02-28 15:17 | NUR ---
ASSUMED CARES AT 0700. PT AWAKE, ALERT AND ORIENTED*4. C/O RIGHT KNEE AND BACK PAIN, HYDROCODONE ADMINISTERED NEEDED Q4H. VITALS REMAIN STABLE. LS COARSE, ON RA WITH SATS >92%. RECEIVING BREATHING TREATMENTS ORDERED. PT RAISED CONCERNS REGARDING PAST HX OF COLON CANCER AND MISSED TUMOR MARKER TESTS, PT STATED THAT SHE WOULD LIKE TO FOLLOWUP WITH DR HORNER HER ONCOLOGIST WHILE STILL IN THE HOSPITAL. DR HOBBS NOTIFIED AND DR HORNER CONSULTED, ORDERS RECEIVED FOR LAB TESTS. PT PARTICIPATED IN THERAPY AND TOLERATED WELL. Q1H VISUAL CHECKS. CALL LIGHT WITHIN REACH. FALL PRECAUTIONS IN PLACE
[2020-02-28 19:55] VITALS: BP 133/86
--- NOTE | 2020-02-29 04:15 | NUR ---
ASSUMED CARE AT APPROX 1900 EVENING 02/27. PT ALERT AND ORIENTED X4 SITTING UP IN BED AT CHANGE OF SHIFT. PT UP TO BATHROOM TO VOID BEFORE HS. PT TOOK HS MEDS PER REQUEST LATER APPROX 2200 AND APPEARS TO BE SLEEPING SOUNDLY WITH HOURLY ROUNDING CHECKS. BED ALARM ON AND CALL LIGHT IN REACH. WILL CONTINUE TO MONITOR.
[2020-02-29 05:58] LABS: HEMATOCRIT 29.9 % (37.0-47.0); HEMOGLOBIN 9.9 gm/dL (12.0-15.0); MCH 33.8 pg (26.0-34.0); MCV 102.5 fL (80.0-100.0); OBSERVED RETIC COUNT 1.69 % (0.6-2.6); RBC 2.92 mil/uL (4.20-5.00); RDW 16.1 % (10.5-14.5); WBC 3.5 thou/uL (4.0-11.0)
[2020-02-29 08:00] VITALS: BP 170/91
[2020-02-29 09:38] VITALS: BP 130/69
[2020-02-29 11:09] LABS: CALCIUM 8.8 mg/dL (8.5-10.1); CREATININE 0.5 mg/dL (0.6-1.0)
--- NOTE | 2020-02-29 14:58 | NUR ---
ASSUMED CARES AT 0700. PT AWAKE, ALERT AND ORIENTED*4, FORGETFUL. C/O NON-CARDIAC CHEST PAIN, PAIN MEDICATION ADMINISTERED NEEDED. LS COARSE, ON RA WITH STABEL SATS. ABD SOFT AND OBESE, BS ACTIVE*4, BM TODAY. PT HAD *1 INCONTINENCE THIS AM, PT ENCOURAGED TO CALL TO USE THE BATHROOM AND TOILETING ATTEMPTED Q4H. SACRAL AREA CLEANED AND BARRIER CREAM APPLIED. PT UP WITH 1 MIN-MOD ASSIST, GB AND WALKER AND TOLERATED WELL. Q1H VISUAL CHECKS. CALL LIGHT WITHIN REACH. FALL PRECAUTIONS IN PLACE
--- NOTE | 2020-02-29 15:42 | NUR ---
cm spoke with jerome via phone call rt [facility] " anyone but [facility], there used to be hospital and i think they killed my mom years ago"/kun. cm went over list [facility], [facility] " mateo tohmpson will be fine thanks"/kun. referral to be sent for hh.
[2020-02-29 20:29] VITALS: BP 138/84
--- NOTE | 2020-03-01 02:19 | NUR ---
UP TO TOILET WITH MOD ASSIST TO STAND, VOID FAIR AMOUNT. APPRECIATES WITH TRAZODONE LATE IN EVENING. STATES SHE SAW DR HORNER TODAY FOR THE FIRST TIME IN YEARS, (MAINLY PER HER REQUEST) APPRECIATES PAIN MEDICINE EVERY 4 HOURS BUT DOES NOT WANT TO BE WOKEN FOR IT DURING THE NIGHT.
[2020-03-01 08:00] VITALS: BP 140/84
--- NOTE | 2020-03-01 08:07 | NUR ---
ASSUME PT CARE AT 0700. RT CAME TO GIVE PT IPV, C/O HEADACHE AFTER THAT, RATES PAIN 9/10, PRN TRAMADOL GIVEN. OFFERED SUPPORIVE CARE. DISCUSSED ABOUT CARE PLAN TODAY. WILL CONTINUE TO MONITOR.
[2020-03-01 08:56] VITALS: BP 140/84
[2020-03-01 20:06] VITALS: BP 139/67
[2020-03-01 21:07] LABS: GLOBULIN TOTAL 2.5 g/dL (2.2-3.9); M-SPIKE Not Observed g/dL (Not Observed)
--- NOTE | 2020-03-02 00:52 | NUR ---
PT ALERT AND ORIENTED X 4. PT SOB WITH ACTIVITY. 02 SAT 96% ON RA. PT C/O PAIN IN HER BACK. HYDROCODONE GIVEN AT HS AND PT SLEEPING UPON REASSESSMENT. PT CALLED FOR HS MEDS APPROPRIATELY. BED ALARM ON FOR SAFETY. PT APPEARS TO BE SLEEPING ON HOURLY ROUNDS.
[2020-03-02 08:00] VITALS: BP 125/68
--- NOTE | 2020-03-02 13:02 | NUR ---
Received awake on bed. Due medications given as prescribed, able to swallow tablets w/o difficulty. On room air. Vital signs stable. A+Ox4. On regular diet- tolerating well; no nausea, no vomiting and no abdominal pain. On blood sugar monitoring- taken and recorded accordingly; with sliding scale insulin prescribed. Continent of bowel and bladder; with episoded of stress incontinence. No IV access noted. Assisted in ADLs. Barrier cream applied to pt's buttocks as ordered. Able to turn self on bed; on low airloss mattress. Calling appropriately for medications. Complained of pain, due PRN pain meds given as prescribed. To continue monitoring patient.
[2020-03-02 19:47] VITALS: BP 130/72
--- NOTE | 2020-03-03 05:36 | NUR ---
Assumed care of patient at change of shift. Rounds done during report. Pt. resting quietly in bed sitting with legs cross-legged or " style". No complaints given and no signs or symptoms of distress or pain noted. Assessment completed approximately 2129. Pt. is alert and oriented x 4. Pt. denies pain but does ask when next dose of pain med is available. Teaching done regarding patient calling for both scheduled medications when they were due and when needing pain medication. She acknowledged this task and states that she has been doing this in preparation for discharge. Lungs are congested with coarseness to all lobes. Occasional non-productive cough reported by patient. She denies SOB and is on RA. Pt. has cushionoid appearance and states that she coded and was on a vent previously. She also reports long history of GI problems including history of colon cancer with surgery in distant past (20's). Pt. denies constipation, diarrhea or abd. pain. She reports passing flatus. Nausea and vomiting is also denied by patient. Pt. c/o head and back pain of 9/10 to both. She received Lortab po x 1. Pt. swallowed pills with pudding. Pt. followed this with drink of water. No difficulty with swallowing noted. Pt. has barrier cream to buttock for redness. She has "pull-up" on for stress incontinence. Overall she is continent of bowel and bladder. Pt. ambulated to bathroom x 2 with gait belt and walker. Gait slow and slightly unsteady. Pt. reports generalized weakness.
[2020-03-03 07:40] VITALS: BP 135/83
--- NOTE | 2020-03-03 07:45 | NUR ---
Pt. received pain med at approximately 0645 for c/o pain to back and neck that is 9/10. She swallowed AM and pain meds with applesauce followed by drink of water. No coughing or choking noted after swallowing.
--- NOTE | 2020-03-03 19:43 | NUR ---
Assumed patient care at 0715. Vital signs stable. Patient is alert and oriented x's 4. She is to call for all of her medications; she has done so during this shift. Patient has been assisted to restroom with gait belt and walker. She had a large "normal" BM this morning. Patient has needed no sliding scale Insulin. She has requested and recieved Hydrocodone 5/325mg po approximately every four hours for headache and back pain, "level nine to ten." Patient reports minimal relief from her pain medication. She also reports that she gets headaches from the "off brand of Thyroid medication." Report given to noc shift RN.
[2020-03-03 20:05] VITALS: BP 138/93
--- NOTE | 2020-03-04 03:03 | NUR ---
TRAZADONE, MELATONIN, AND HYDROCODONE AT 2300 PER REQUEST TO ENCOURAGE SLEEP. SLEEPING SINCE MIDNIGHT, PATIENT IS TURNING SELF APPROXIMATELY HOURLY. USUALLY ASKS FOR PAIN MED Q 4 HOURS BUT HAS ASKED TO NOT BE WOKEN JUST FOR MED, WILL OFFER MED NEXT TIME SHE IS AWAKE. PATIENT HAS BILATERAL BRUISED BUTTOCKS WITH NO BREAKDOWN. CONTINENT SO FAR TONIGHT.
[2020-03-04 08:03] VITALS: BP 114/76
--- NOTE | 2020-03-04 08:13 | NUR ---
ASSUME PT CARE AT 0700. REPORTS SLEPT FAIR DUE TO BATHROOM AT NIGHT. PT UP TO BATHROOM WITH WALKER. CONT B & B. REPORTS HAD LOOSE STOOL YESTERDAY. REFUSED LAXATIVE PT AWAKE, ALERT AND ORIENTEDX 4.ABLE TO VOICE HER NEEDS. C/O RIGHT KNEE AND BACK PAIN, 8/10 AND HEADACHE 8/10 PRN HYDROCODONE VITALS REMAIN STABLE. LS COARSE, ON RA WITH SATS >95%. RECEIVING BREATHING TREATMENTS AND IPV QID. C/O HEADACHE AFTER IPV. OFFERED SUPPORTIVE CARE. ENCOURAGED PT TO PARTICIPATE IN THERAPY TODAY. Q1H VISUAL CHECKS. CALL LIGHT WITHIN REACH. FALL PRECAUTIONS IN PLACE. CALL LIGHT WITHIN REACH. REASSESSMENT PER CHART. BUTTOCK BETTER. CONTINUE TO APPLY BARRIER CREAM, ENCOURAGED PT TO TURN HER POSITION Q2HR. CONTINUE TO BE ON LOW AIR LOSS MATTRESS. WILL CONTINUE TO MONITOR.
--- NOTE | 2020-03-04 15:28 | NUR ---
Nutrition followup: Diet is now upgraded to regular consistency. Pt eating well, 75-100% of meals. Dislikes glucerna, will D/C. RD obtained other food preferences and will order dinner for pt tonight. BG 83-127. Continues on vitamin D and folic acid supplementation. Weight fluctuations over admit but no loss seen. Plan D/C this week. Low nutrition risk.
[2020-03-04 20:35] VITALS: BP 123/80
--- NOTE | 2020-03-05 03:58 | NUR ---
AWAKE AT 0200 AND NEEDING TO VOID URGENTLY, WAS BARELY ABLE TO GET TO TOILET CONTINENLY. PAIN MED AT THAT TIME AND WAS ABLE TO GET BACK TO SLEEP. PER SUGGESTION OF THERAPIST WAS ABLE TO STAND UP FROM TOILET BY HOLDING ON TO BARS NEXT TO IT. ANTICIPATING GOING HOME ON WEDNESDAY WITH THOUGHT THAT TEAM MEETING TODAY SHOULD CONFIRM IT
[2020-03-05 08:00] VITALS: BP 134/59
--- NOTE | 2020-03-05 10:45 | NUR ---
5n staff checked with pt to see who her primary care dr is. per pt dr zahra winston out of [facility].
[2020-03-05 11:02] VITALS: BP 134/59
--- NOTE | 2020-03-05 11:03 | NUR ---
PT TO DC TO HOME WITH HH REFERRAL FAXED TO [facility] THEY CAN ACCEPT PCP IS GUADALUPE GANN FROM [facility]. ANTICIPATE DC 03/07
--- NOTE | 2020-03-05 12:15 | NUR ---
ASSUMED CARE AT 0700. PATIENT IS ALERT AND ORIENTED X4. PATIENT GARCIA, PRESS BREAKER ARE EQUAL. LUNGS. ARE COARSE AND DEMINISHED. PATIENT CONTINUES ON RESPIRATORY TX. ABD IS SOFT WITH BSX4. REFUSED MIRALAX. UP TO THE BATHROOM WITH ASSIST OF 1 STAFF, GAIT BELT AND WALKER TO VOID GRIS COLORED URINE. FALL AND SAFETY PROTOCOL IN PLACE. C/O PAIN IN HER BACK. MEDICATED WITH PRN PAIN MED. CONTINUES TO PROGRESS SLOWLY TOWARDS D/C GOALS. WILL CONTINUE TO [facility]
--- NOTE | 2020-03-05 13:41 | NUR ---
team meeting, recommendation cont with dc 5/7 with marie salazar ( pt, ot, st, nursing and sw). daughter did bring up walker for her. family to assistance with bills and pills.
[2020-03-05 19:45] VITALS: BP 134/74
--- NOTE | 2020-03-06 04:19 | NUR ---
Assumed pt care at 1900. A/OX4,VSS. Up with AX1, RW/GB. C/o pain to back/headache medicated per EMAR with relief reported. Continent of B&B. Took meds whole at HS,requested to take it in pudding. Resting quietly at this time w/o distress noted will continue to monitor pt.
[2020-03-06 08:00] VITALS: BP 134/76
--- NOTE | 2020-03-06 10:34 | NUR ---
ASSUMED CARE AT 0700. PATIENT IS ALERT AND ORIENTED X4. PATIENT GARCIA'S, ENERGY CONSERVATION DIRECTOR ARE EQUAL. LUNGS ARE COARSE AND DEMINISHED. PATIENT CONTINUES ON RESPIRATORY TX. ABD IS SOFT WITH BSX4. UP TO THE BATHROOM WITH ASSIST OF 1 STAFF WITH GAIT BELT AND WALKER TO VOID GRIS COLORED URINE. PATIENT IS UP ON SIDE OF BED FOR MEALS. S.T. HERE TDO EVAL PATIENT FOR BREAKFAST TODAY. FALL AND SAFETY PROTOCOLS IN PLACE. C/O PAIN IN HER BACK , MEDICATED WITH PRN PAIN MED. PATIENT CONTINUES TO PROGRESS TOWARDS D/C GOALS. WILL CONTINUE TO MONITER.
--- NOTE | 2020-03-06 10:50 | NUR ---
Correction: pt's pcp is Dr. Olya Londono out of [facility] [phone].
[2020-03-06 19:45] VITALS: BP 125/82
--- NOTE | 2020-03-07 05:30 | NUR ---
SLEPT BETTER AND LONGER THAN USUAL OVERNIGHT. PAIN MED AT THIS TIME. APPRECIATED TRAZADONE LATER IN HS EVENING. ANTICIPATING GOING HOME AFTERNOON TODAY. BUTTOCKS REMAIN BRUISED BUT WITHOUT BREAKDOWN
[2020-03-07 08:00] VITALS: BP 135/91
[2020-03-07] MEDS ORDERED: CULTURELLE KID1 EAC1 PO (08:48)
[2020-03-07] MEDS ORDERED: TRAZODONE HCL100 MG PO (08:48)
[2020-03-07] MEDS ORDERED: MIRALAX17 GM PO (08:48)
[2020-03-07] MEDS ORDERED: COLACE100 MG PO (08:48)
[2020-03-07] MEDS ORDERED: BENICAR40 MG PO (08:48)
[2020-03-07] MEDS ORDERED: LOPRESSOR50 PO (08:48)
[2020-03-07] MEDS ORDERED: FOLIC ACID1 MG PO (08:48)
[2020-03-07] MEDS ORDERED: VITAMIN D325 MCG PO (08:48)
[2020-03-07] MEDS ORDERED: NYAMYC15 GM TOP (08:48)
[2020-03-07] MEDS ORDERED: SYNTHROID112 MC1 PO (08:48)
[2020-03-07] MEDS ORDERED: PROTONIX40 M4 PO (08:48)
[2020-03-07] MEDS ORDERED: VENTOLIN HFA 1818 GM INH (09:34)
[2020-03-07 11:05] VITALS: BP 134/59
[2020-03-07 11:46] VITALS: BP 134/59
--- NOTE | 2020-03-07 14:23 | NUR ---
PT DISCHARGING TODAY TO [facility] WITH [facility] FAXED DC ORDERS/SUMMARY SPOKE WITH KAMALA IN INTAKE SHE RECEIVED ORDERS AND WILL NOTIFY PT TIME OF VISITS.
--- NOTE | 2020-03-07 14:57 | NUR ---
ASSUMED CARE OF PT AT 0700. PT IS A&OX4 AND VITAL SIGNS ARE STABLE. PT REPORTS PAIN 8/10, PAIN MEDICATIONS ADMINISTERED ORDERED. ORDERS FOR DISCHARGE TODAY. DISCHARGE INSTRUCTIONS AND EDUCATION REVIEWED WITH PT SCRIPTS SENT TO PHARMACY WITH HARD SCRIPT FOR NARCOTICS GIVEN TO PT WITH DISCHARGE PAPERWORK. PATIENT BELONGINGS COLLECTED AND PT DISCHARGED FROM UNIT AT 1245 WITH NURSING STAFF ASSISTING PT TO ED TO MEET FAMILY.
== END 2020-03-07 13:37 | disposition home health service (06) | DRG 91 ==
PROVIDERS: Internal Medicine Hematology & Oncology; Nurse Practitioner; Nurse Practitioner Adult Health; Nurse Practitioner Family; ADMIT Physical Medicine & Rehabilitation
DX: G92 Toxic encephalopathy (principal); R65.21 Severe sepsis with septic shock; A41.9 Sepsis, unspecified organism; K72.00 Acute and subacute hepatic failure without coma; E43 Unspecified severe protein-calorie malnutrition; J69.0 Pneumonitis due to inhalation of food and vomit; J96.21 Acute and chronic respiratory failure with hypoxia; G72.81 Critical illness myopathy; N17.9 Acute kidney failure, unspecified; N39.0 Urinary tract infection, site not specified; G93.1 Anoxic brain damage, not elsewhere classified; F11.20 Opioid dependence, uncomplicated; R53.81 Other malaise; E11.9 Type 2 diabetes mellitus without complications; D64.9 Anemia, unspecified; F10.10 Alcohol abuse, uncomplicated; I10 Essential (primary) hypertension; F17.210 Nicotine dependence, cigarettes, uncomplicated; M41.9 Scoliosis, unspecified; K72.90 Hepatic failure, unspecified without coma; M06.9 Rheumatoid arthritis, unspecified; F01.50 Vascular dementia, unspecified severity, without behavioral disturbance, psychotic disturbance, mood disturbance, and anxiety; H70.92 Unspecified mastoiditis, left ear; F43.21 Adjustment disorder with depressed mood; E83.42 Hypomagnesemia; E03.9 Hypothyroidism, unspecified; R74.0 Nonspecific elevation of levels of transaminase and lactic acid dehydrogenase [LDH]; F32.9 Major depressive disorder, single episode, unspecified; S30.810A Abrasion of lower back and pelvis, initial encounter; L81.9 Disorder of pigmentation, unspecified; D69.6 Thrombocytopenia, unspecified; E53.8 Deficiency of other specified B group vitamins; L89.321 Pressure ulcer of left buttock, stage 1; L89.311 Pressure ulcer of right buttock, stage 1; J44.9 Chronic obstructive pulmonary disease, unspecified; Z91.14 Patient's other noncompliance with medication regimen; Z85.038 Personal history of other malignant neoplasm of large intestine; Z88.1 Allergy status to other antibiotic agents; Z68.24 Body mass index [BMI] 24.0-24.9, adult; G47.00 Insomnia, unspecified; X58.XXXA Exposure to other specified factors, initial encounter; Y93.89 Activity, other specified; Y92.89 Other specified places as the place of occurrence of the external cause; Y99.8 Other external cause status
CPT/HCPCS: 10112

== ENCOUNTER → 2020-04-04 | Outpatient (CLI) | payer OTHER ==
[~2020-04-04] MED LIST changes: +BENICAR40 MG PO; +COLACE100 MG PO; +CULTURELLE KID1 EAC1 PO; +DOXYCYCLINE 10100 M2 PO; +FOLIC ACID1 MG PO; +IPRAT-ALBUT 0.5-3 ML INH; +LOPRESSOR50 PO; +MIRALAX17 GM PO; +NORVASC5 MG PO; +NYAMYC15 GM TOP; +PREDNISONE 10 M10 M1 PO; +PROTONIX40 M4 PO; +TRAZODONE HCL100 MG PO; +VENTOLIN HFA 1818 GM INH; +VITAMIN D325 MCG PO
== END ==
LOC: SJCVCIMAG 08:24
DX: I25.2 Old myocardial infarction (principal); J44.9 Chronic obstructive pulmonary disease, unspecified; E11.9 Type 2 diabetes mellitus without complications; F17.200 Nicotine dependence, unspecified, uncomplicated

== ENCOUNTER 2020-09-22 23:15 | Inpatient (IN) | payer OTHER ==
[~2020-09-22] VITALS: Ht 162.6 cm; Wt 62.6 kg
--- NOTE | ~2020-09-22 | HC ---
[facility] [address] [place] [address] CONSULTATION Name: VEENA VIERA Room #: 246-P ADM IN ..#: [id number] Admission: 09/23/20 Attend Phys: Shankar Valle MD Discharge: Date of : 60 Report #: [id number] THIS REPORT FOR: cc: [facility] - Clinic physician unknown [facility] - Clinic physician unknown Mihai Martinez MD ~ DATE OF SERVICE: 09/23/2020 HISTORY OF PRESENT ILLNESS: This is a 60-year-old female patient who was seen by me after 2 cardiac arrests she had. The history is entirely from the records, which was reviewed. I talked to the nurses looking after this patient. The records indicate that the patient was sick and not feeling good, but she refused to go to the hospital and then she had a cardiac arrest. Even before this cardiac arrest, she has a pretty involved history. According to nurses, the patient is COVID positive and she is on all the precautions. REVIEW OF SYSTEMS: A 14-point review of system was carried out, but that is from the records. She has a pretty involved history. She has a history of colon cancer. She has a history of diabetes, hypothyroidism, COPD, hypertension, rheumatoid arthritis. She was in the hospital in January when she had another cardiorespiratory arrest and she was intubated. She has another cardiac arrest when she was on hypothermia protocol, which has been discontinued. That was a relevant 14-point review of system. PAST FAMILY HISTORY: Not available except as per record. PAST MEDICAL HISTORY: Indicates she was admitted here with what looks like another cardiac arrest. SOCIAL HISTORY: Not available even from the record. PHYSICAL EXAMINATION: Pretty limited. She does not have any response. Her pupil does not have any reaction. Both the plantars are mute. No reflexes could be elicited. There is no meningeal sign. I could not look at the patient's fundus. She appeared to be relatively stable at the moment, although she had hemodynamic instability and even now her blood pressure is running about 193/48. IMPRESSION: This patient clinically does look like has hypoxic encephalopathy. As I understand from the nurses, the hospitalist is going to talk to the family to see if they want to make her comfort care. If they decide to make the patient comfort care, we will not do any further neurological workup. If they want us to carry out more workup to further prognosticate this patient then we can do more workup either a brain flow studies or an EEG or both. Presently, I [facility] [address] [place] [address] CONSULTATION Name: VEENA VIERA Room #: 246-P [facility]#: [id number] Admission: 09/23/20 Attend Phys: Shankar Valle MD Discharge: Date of : 60 Report #: [id number] will not order any workup and await their discussion with the hospitalist to see if the family even want to do further testing or do comfort care because of pretty involved history in the past. More than 35 minutes of time was spent taking care of this patient today and majority was spent counseling and coordinating. Thank you very much for this referral. By: 1621 [id number] Mihai Martinez MD /nt
[2020-09-22 23:18] VITALS: BP 82/40
[2020-09-22 23:48] LABS: BE(vivo) -29.5 mmol/L (-2 to +3); HCO3 7.7 mmol/L (22.0-26.0); PO2 108.6 mmHg (80.0-100.0)
[2020-09-22 23:49] LABS: PCO2 70.1 mmHg (35.0-45.0); pH 6.657 (7.360-7.450)
[2020-09-22 23:49] LABS: HEMATOCRIT 35.5 % (37.0-47.0); HEMOGLOBIN 10.3 gm/dL (12.0-15.0); MCH 29.1 pg (26.0-34.0); MCHC 29.1 g/dL (28.0-37.0); PLATELET COUNT 215 thou/uL (150-400); RBC 3.55 mil/uL (4.20-5.00); RDW 19.4 % (10.5-14.5); WBC 8.7 thou/uL (4.0-11.0)
[2020-09-23] VITALS (123 sets, daily range): BP systolic 74–223; BP diastolic 35–125
[2020-09-23 00:06] LABS: ALBUMIN 2.6 g/dL (3.4-5.0); CALCIUM 8.7 mg/dL (8.5-10.1); CREATININE 1.4 mg/dL (0.6-1.0); POTASSIUM 3.6 mmol/L (3.5-5.1); TOTAL BILIRUBIN 0.1 mg/dL (0.2-1.0)
[2020-09-23 00:20] LABS: URINE BILIRUBIN NEGATIVE (Negative); URINE BLOOD 1+ (Negative); URINE CLARITY CLEAR; URINE COLOR YELLOW; URINE GLUCOSE-RANDOM* NEGATIVE (Negative); URINE KETONES NEGATIVE (Negative); URINE LEUKOCYTES-REFLEX NEGATIVE (Negative); URINE NITRITE-REFLEX NEGATIVE (Negative); URINE PROTEIN (DIPSTICK) 2+ (Negative); URINE SPECIFIC GRAVITY 1.025 (1.005-1.035); URINE UROBILINOGEN 0.2 E.U./dl (0.2-1.0)
[2020-09-23 00:22] LABS: ABSOLUTE NEUTROPHILS 6.9 thou/uL (1.4-8.2)
[2020-09-23 00:23] LABS: ANISOCYTOSIS 2+; SCHISTOCYTES FEW
[2020-09-23 00:24] LABS: TOXIC GRANULATION SLIGHT
[2020-09-23 00:31] LABS: MUCUS 0-3 Light strn/LPF (None Seen); SQUAMOUS None Seen /LPF (0-3); TRANSITIONAL EPITHEL CELL 4-10 Moderate /LPF (None Seen)
[2020-09-23 00:32] LABS: BACTERIA-REFLEX None Seen /HPF (None Seen); CRYSTALS None Seen /LPF (None Seen); URINE RBC 3-10 Few /HPF (0-2); URINE WBC-REFLEX None Seen /HPF (0-5); WBC CASTS 0-3 Few /LPF (None Seen)
[2020-09-23 03:47] LABS: FIBRINOGEN 423.8 mg/dL (210-360)
[2020-09-23 03:55] LABS: D-DIMER 29.27 ug/mLFEU (0.19-0.50)
[2020-09-23 04:05] LABS: BE(vivo) -14.1 mmol/L (-2 to +3); HCO3 16.8 mmol/L (22.0-26.0); PCO2 62.6 mmHg (35.0-45.0)
[2020-09-23 04:06] LABS: pH 7.046 (7.360-7.450)
--- NOTE | 2020-09-23 07:16 | EKG ---
[facility] [address] [place] [address] ELECTROCARDIOGRAM REPORT Name: VEENA VIERA Room #: 246-P ADM IN M.R.#: [id number] Admission: 09/23/20 Attend Phys: Shankar Valle MD Discharge: Date of : 60 Report #: [id number] THIS REPORT FOR: cc: [facility] - Clinic physician unknown [facility] - Clinic physician unknown Syd Elliott MD [facility] ~ THIS REPORT FOR: //name// [facility] ED Test Date: 2020-09-22 Test Time: 23:37:21 Pat Name: VEENA VIERA Department: Room: 246 Gender: F Body Component Engineer: [facility] : 1960 Requested By: Cricket Key Order Number: [id number] MD: Syd Elliott Measurements Intervals [place] Rate: 75 P: 79 ND: 177 QRS: -57 QRSD: 123 T: -1 QT: 492 QTc: 550 Interpretive Statements Sinus rhythm Left atrial enlargement Nonspecific IVCD with LAD Nonspecific T abnormalities, anterior leads Compared to ECG 02/19/2020 08:00:19 Atrial abnormality now present Intraventricular conduction delay now present T-wave abnormality now present Myocardial infarct finding no longer present Electronically Signed On 09-23-2020 7:16:05 CHURCH ORGANIST by Syd Elliott [email or web address] <ELECTRONICALLY SIGNED> By: Syd Elliott MD, FACC 09/23/20 0716 2337 36 Syd Elliott MD, FAC /EPI
[2020-09-23 07:40] LABS: HEMATOCRIT 40.1 % (37.0-47.0); PLATELET COUNT 235 thou/uL (150-400); RBC 4.28 mil/uL (4.20-5.00); RDW 18.7 % (10.5-14.5); WBC 10.7 thou/uL (4.0-11.0)
[2020-09-23 07:56] LABS: HEMOGLOBIN 12.4 gm/dL (12.0-15.0)
[2020-09-23 07:57] LABS: MCV 93.6 fL (80.0-100.0)
--- NOTE | 2020-09-23 08:35 | NUR ---
PT ADMITTED TO ROOM 246 FROM ER. ENHANCED PRECAUTIONS IN PLACE PT REPORT COVID +. WAS STARTED ON HYPOTHERMIA PROTOCOL, THEN BECAME TO COLD DESPITE STARTING THE REWARMING, ADDED WARM BLANKETS. PT BECAME PULSELESS, SEE CODE SHEET. DOPAMINE STARTED IN ADDITION TO LEVOPHED TO ACHIEVE MAP >65 AND HR >60. ON VENT 100% WITH 02SAT MID 80'S. LS -DIMINISHED THROUGHTOUT. RESP WERE LABORED UPON ARRIVAL, NOW NOT ASSISTING VENT. SON RACIEL NOTIFIED OF PT STATUS, AND CODE. FAMILY WANTED DNR, AND WILL DISCUSS FURTHER COMFORT/ WITHDRAWAL MEASURE. CONT PLAN OF CARE
[2020-09-23 08:38] LABS: APTT 34.8 Seconds (24.5-32.8); INR 1.1; PROTIME 10.8 Seconds (9.3-11.4)
[2020-09-23 08:45] LABS: CALCIUM 8.2 mg/dL (8.5-10.1); CREATININE 1.4 mg/dL (0.6-1.0); MAGNESIUM 2.3 mg/dL (1.8-2.4); PHOSPHORUS 8.2 mg/dL (2.5-4.9); POTASSIUM 4.1 mmol/L (3.5-5.1); TROPONIN-I 0.12 ng/mL (<0.06)
--- NOTE | 2020-09-23 11:24 | NUR ---
ASSESSMENT: CM REVIEWED CHART. PT HAS HX OF COLON CA AND POST CHEMO AND ADMITTED DUE TO CARDIAC ARREST. PT IS COVID POSITIVE AND CURRENTLY INTUBATED WITH 100 PERCENT FI02. PT IS ON LEVOPHED DRIP WELL IV ANBX. PT IS VERY CRITICAL AT THIS TIME. PHYSICIAN SPOKE WITH FAMILY AND DISCUSSED GOALS OF CARE, PATIENT IS POSSIBLY GOING TO COMFORT CARE THIS AFTERNOON. WILL AWAIT TO SEE PTS PROGRESS PRIOR TO REACHING OUT TO FAMILY. CM WILL CONTINUE TO FOLLOW TO ASSIST NEEDED.
[2020-09-23 12:00] LABS: ABSOLUTE NEUTROPHILS 10.3 thou/uL (1.4-8.2); ANISOCYTOSIS 2+
[2020-09-23 12:49] LABS: ABSOLUTE NEUTROPHILS 6.3 thou/uL (1.4-8.2); BASOPHILS 0.2 % (0.0-2.0); HEMATOCRIT 37.1 % (37.0-47.0); HEMOGLOBIN 11.9 gm/dL (12.0-15.0); LYMPHOCYTES 3.8 % (24.0-44.0); MCV 90.7 fL (80.0-100.0); MONOCYTES 2.9 % (1.0-8.0); PLATELET COUNT 186 thou/uL (150-400); POLYS 93.1 % (36.0-66.0); RBC 4.09 mil/uL (4.20-5.00); RDW 17.5 % (10.5-14.5); WBC 6.8 thou/uL (4.0-11.0)
[2020-09-23 13:14] LABS: ANISOCYTOSIS 1+
[2020-09-23 13:19] LABS: CALCIUM 7.2 mg/dL (8.5-10.1); CREATININE 1.3 mg/dL (0.6-1.0); MAGNESIUM 2.4 mg/dL (1.8-2.4); PHOSPHORUS 4.6 mg/dL (2.5-4.9); TROPONIN-I 0.2 ng/mL (<0.06)
[2020-09-23 13:20] LABS: APTT 31.8 Seconds (24.5-32.8); INR 1.1; PROTIME 11.2 Seconds (9.3-11.4)
[2020-09-23 13:22] LABS: POTASSIUM 2.9 mmol/L (3.5-5.1)
--- NOTE | 2020-09-23 14:42 | EKG ---
[facility] [place] [address] [place] [address] ELECTROCARDIOGRAM REPORT Name: VEENA VIERA Room #: 246-P ADM IN M.R.#: [id number] Admission: 09/23/20 Attend Phys: Shankar Valle MD Discharge: Date of : 60 Report #: [id number] THIS REPORT FOR: cc: [facility] - Clinic physician unknown [facility] - Clinic physician unknown Syd Elliott MD [facility] THIS REPORT FOR: //name// 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[employer] : 1960 Requested By: Shankar Valle Order Number: [id number] MD: Syd Elliott Measurements Intervals [place] Rate: 79 P: 85 [place]: 181 QRS: -9 QRSD: 117 T: QT: 450 QTc: 517 Interpretive Statements Sinus rhythm LAE, consider biatrial enlargement Poor R wave progression V1-3 Left ventricular hypertrophy Prolonged QT interval Compared to ECG 09/22/2020 23:37:21 Left ventricular hypertrophy now present Prolonged QT interval now present Intraventricular conduction delay no longer present T-wave abnormality no longer present Electronically Signed On 09-23-2020 14:42:03 CLAIMS PROCESSOR by Syd Elliott [email or web address] <ELECTRONICALLY SIGNED> By: Syd Elliott MD, [facility] 09/23/20 1442 6 0507 Syd Elliott MD, [facility] /EPI
--- NOTE | 2020-09-23 19:33 | NUR ---
PATIENT NOT PROGRESSING TOWARDS DISMISSAL GOALS. PATIENT IN REWARMING PHASE OF HYPOTHERMIA TO NORMOTHERMIA. DR ZAPATA SPOKE WITH FAMILY TODAY ABOUT PATIENT PROGNOSIS. 100% FIO2 ON VENTILATOR. PATIENT DOES NOT OVERBREATHE VENTILATOR RR. PUPILS ARE NON REACTIVE. PATIENT REMAINS NON RESPONSIVE. LEVOPHED GTT WEANED OFF AT 1720 DOPAMINE OFF AT 0800.
[2020-09-24] VITALS (50 sets, daily range): BP systolic 82–188; BP diastolic 48–103
[2020-09-24 06:04] LABS: ABSOLUTE NEUTROPHILS 7.3 thou/uL (1.4-8.2); BASOPHILS 0.9 % (0.0-2.0); HEMATOCRIT 36.5 % (37.0-47.0); HEMOGLOBIN 11.8 gm/dL (12.0-15.0); LYMPHOCYTES 3.4 % (24.0-44.0); MCHC 32.3 g/dL (28.0-37.0); MCV 89.8 fL (80.0-100.0); MONOCYTES 5.9 % (1.0-8.0); PLATELET COUNT 183 thou/uL (150-400); POLYS 89.8 % (36.0-66.0); RBC 4.07 mil/uL (4.20-5.00); RDW 17.3 % (10.5-14.5); WBC 8.1 thou/uL (4.0-11.0)
[2020-09-24 06:25] LABS: FIBRINOGEN 453.7 mg/dL (210-360); INR 1.1; PROTIME 10.8 Seconds (9.3-11.4)
[2020-09-24 06:33] LABS: ALBUMIN 2.4 g/dL (3.4-5.0); CALCIUM 7.6 mg/dL (8.5-10.1); CREATININE 1.1 mg/dL (0.6-1.0); POTASSIUM 3.1 mmol/L (3.5-5.1); TOTAL BILIRUBIN 0.3 mg/dL (0.2-1.0); TOTAL PROTEIN 6.2 g/dL (6.4-8.2)
--- NOTE | 2020-09-24 07:30 | NUR ---
ORDERS FOR EVAL AND TREAT. Pt ON VENT AND NON-RESPONSIVE. WILL PLACE ON HOLD AND AWAIT NEW ORDERS TO ASSESS WHEN APPROPRIATE
--- NOTE | 2020-09-24 09:37 | 2DMMODE ---
[address] [address] 2 D/M-MODE ECHOCARDIOGRAM Name: VEENA VIERA Room #: 246-P ADM IN M.R.#: [id number] Admission: 09/23/20 Attend Phys: Shankar Valle MD Discharge: Date of : 60 Report #: [id number] THIS REPORT FOR: cc: [facility] - Clinic physician unknown [facility] - Clinic physician unknown Rory Ca MD ~ APPROVED REPORT Study performed: 09/24/2020 09:02:50 EXAM: Comprehensive 2D, Doppler, and color-flow Echocardiogram Patient Location: ICU Room #: [facility] Status: routine BSA: 1.67 HR: 100 bpm BP: 106/64 mmHg Rhythm: Tachycardia Other Information Study Quality: Good Indications S^P Code blue Left Ventricle The left ventricle is normal size. There is normal LV segmental wall motion. There is normal left ventricular wall thickness. The left ventricular systolic function is normal. The left ventricular ejection fraction is within the normal range. LVEF is 60-65%. Right Ventricle The right ventricle is normal size. The right ventricular systolic function is normal. Atria The left atrium size is normal. The right atrium size is normal. Aortic Valve Aortic valve is mildly calcified. No aortic regurgitation is present. There is no aortic valvular stenosis. Mitral Valve [address] [address] 2 D/M-MODE ECHOCARDIOGRAM Name: VEENA VIERA Room #: 246-P ADM IN M.R.#: [id number] Admission: 09/23/20 Attend Phys: Shankar Valle MD Discharge: Date of : 60 Report #: [id number] The mitral valve is normal in structure. There is no mitral valve regurgitation noted. No evidence of mitral valve stenosis. Tricuspid Valve The tricuspid valve is normal in structure. Trace tricuspid regurgitation. Pulmonic Valve The pulmonary valve is normal in structure. Great Vessels The aortic root is normal in size. IVC is not well visualized. Pericardium There is no pericardial effusion. <Conclusion> The left ventricle is normal size. The left ventricular systolic function is normal. The right ventricle is normal size. The left atrium size is normal. Aortic valve is mildly calcified. There is no mitral valve regurgitation noted. Trace tricuspid regurgitation. <ELECTRONICALLY SIGNED> By: Rory Ca MD 09/24/20936 6 6 Rory Ca MD /INF
--- NOTE | 2020-09-24 19:04 | NUR ---
PATIENT DOES NOT PROGRESS TOWARDS DISMISSAL GOALS TODAY. DR GRECO CONSULTED TO SEE PATIENT. PATIENT FIO2 80-100% PUPILS REMAIN FIXED. FAMILY DID NOT CALL FOR UPDATES TODAY. LEVOPHED INITIATED FOR MAPS <60.
[2020-09-25] VITALS (55 sets, daily range): BP systolic 88–139; BP diastolic 49–81
[2020-09-25 05:58] LABS: ABSOLUTE NEUTROPHILS 9.4 thou/uL (1.4-8.2); BASOPHILS 0.2 % (0.0-2.0); HEMATOCRIT 36.3 % (37.0-47.0); HEMOGLOBIN 11.6 gm/dL (12.0-15.0); LYMPHOCYTES 4.2 % (24.0-44.0); MCH 29.1 pg (26.0-34.0); MCHC 32.1 g/dL (28.0-37.0); MCV 90.6 fL (80.0-100.0); MONOCYTES 7.7 % (1.0-8.0); PLATELET COUNT 185 thou/uL (150-400); POLYS 87.9 % (36.0-66.0); RDW 18.3 % (10.5-14.5); WBC 10.7 thou/uL (4.0-11.0)
[2020-09-25 06:08] LABS: ALBUMIN 2.2 g/dL (3.4-5.0); CREATININE 1.4 mg/dL (0.6-1.0); DIRECT BILIRUBIN 0.2 mg/dL (<0.1-0.2); TOTAL BILIRUBIN 0.3 mg/dL (0.2-1.0); TOTAL PROTEIN 6.1 g/dL (6.4-8.2)
--- NOTE | 2020-09-25 10:05 | NUR ---
Nutrition: Pt post cardiac arrest, S/P rewarming. Hx colon CA/chemo. Non responsive with pupils fixed. Dr Betancourt consult and nsg reports likely palliative care with no plans for tube feeds to start at this time however if that changes rec Glucerna 1.2 to reach 60 mL/hr.
--- NOTE | 2020-09-25 11:02 | NUR ---
ASSUMED CARE OF PT AT 0700. SPOKE TO PT'S DAUGHTER IN LAW, QUENTIN, AT 0930. SHE WAS UPDATED ON PT'S PLAN OF CARE. DR ZAPATA AT BEDSIDE AND UPDATED ON PT STATUS AT 1110.
--- NOTE | 2020-09-25 22:31 | HC ---
[facility] [place] [address] [place] [address] CONSULTATION Name: VEENA VIERA Room #: 246-P [facility].#: [id number] Admission: 09/23/20 Attend Phys: Shankar Valle MD Discharge: 09/25/20 Date of : 60 Report #: [id number] THIS REPORT FOR: cc: [facility] - [facility] physician unknown [facility] - [facility] physician unknown Raymundo Cabezas MD ~ DATE OF SERVICE: 09/23/2020 INFECTIOUS DISEASE CONSULTATION REASON FOR CONSULTATION: I was asked to evaluate concerning cardiac arrest and COVID-19 positive. HISTORY OF PRESENT ILLNESS: A 60-year-old who had an opy-hc-qgjnwemw cardiac arrest and was transported to [facility] for further evaluation. While here, she also had a second arrest showing PEA. She was then found to be in atrial fibrillation. She is now intubated. She has undergone hypothermia protocol. She has been given broad-spectrum antibiotics and corticosteroids. No evidence of gross aspiration was identified. She had been feeling poorly for several days prior to this event. She is now off sedation and off the hypothermic protocol. There has been no spontaneous movement. Nursing notes pupils were fixed. She remains on the ventilator. Off vasopressors. REVIEW OF SYSTEMS: Review of systems was negative other than what has been described above. PAST MEDICAL HISTORY: COPD, hypertension, colon cancer, scoliosis, chronic pain syndrome, diabetes, hypothyroidism, alcohol abuse, previous hospitalization where she did have a brief cardiac arrest during that admission. ALLERGIES: ERYTHROMYCIN. MEDICATIONS: As noted on her MAR, which were reviewed. FAMILY HISTORY: Noncontributory and unable to obtain further information. The patient was obtunded. SOCIAL HISTORY: Long-term smoker and history of alcohol abuse. PHYSICAL EXAMINATION: VITAL SIGNS: Hypothermic. Blood pressure was stable. She was on 100% FiO2. GENERL: She was mottled distally. HEENT: Eyes, pupils were fixed around 5 mm. Doll's eyes was positive. No gag with movement of her ET tube. Corneal reflexes absent. [facility] [address] [place] [address] CONSULTATION Name: VEENA VIERA Room #: 246-P [facility] IN ..#: [id number] Admission: 09/23/20 Attend Phys: Shankar Valle MD Discharge: 09/25/20 Date of : 60 Report #: [id number] NECK: Supple. Mouth orally intubated. LUNGS: Coarse bilaterally. HEART: Regular with no murmur. ABDOMEN: Soft, no masses. EXTREMITIES: With no significant edema. LABORATORY STUDIES: Reviewed. Chest x-ray reviewed with bilateral infiltrates. Microbiology reviewed. IMPRESSION: 1. A 60-year-old with underlying chronic obstructive pulmonary disease, with hqt-ho-pkzifwbp and in-hospital cardiac arrest. I questioned whether COVID-19 was the offending agent that led to this presentation. She does have bilateral pulmonary infiltrates. 2. Underlying chronic obstructive pulmonary disease, hypertension, alcohol abuse, tobacco abuse. 3. Profound metabolic acidosis, acute kidney injury and hypoxic brain injury. RECOMMENDATION: We will continue empiric antibiotic coverage, corticosteroids and remdesivir. I discussed with nursing at the bedside. [place] here is very poor, but we will initiate treatment for the first 24-48 hours and reassess her progress. <ELECTRONICALLY SIGNED> By: Raymundo Cabezas MD 09/25/202230 50 25 Raymundo Cabezas MD /nt
[2020-09-27 11:35] LABS: GLYCOHEMOGLOBIN (HGB A1C) 5.6
== END 2020-09-25 18:30 | DRG 871 ==
LOC: ER 23:15 → EROBS 09-23 00:53 → ICU 09-23 00:53 → EROBS 09-23 00:53 → ICU 09-23 01:33
PROVIDERS: Emergency Medicine; Nurse Practitioner Family; Specialist; ADMIT Hospitalist; ATTEND Hospitalist
DX: A41.9 Sepsis, unspecified organism (principal); U07.1 COVID-19; J96.21 Acute and chronic respiratory failure with hypoxia; J96.22 Acute and chronic respiratory failure with hypercapnia; J12.89 Other viral pneumonia; R65.21 Severe sepsis with septic shock; N17.0 Acute kidney failure with tubular necrosis; F11.20 Opioid dependence, uncomplicated; G93.1 Anoxic brain damage, not elsewhere classified; E87.0 Hyperosmolality and hypernatremia; I46.9 Cardiac arrest, cause unspecified; J44.9 Chronic obstructive pulmonary disease, unspecified; G89.29 Other chronic pain; M54.9 Dorsalgia, unspecified; F17.210 Nicotine dependence, cigarettes, uncomplicated; I48.91 Unspecified atrial fibrillation; M41.9 Scoliosis, unspecified; E03.9 Hypothyroidism, unspecified; M06.9 Rheumatoid arthritis, unspecified; E78.5 Hyperlipidemia, unspecified; N18.9 Chronic kidney disease, unspecified; F10.20 Alcohol dependence, uncomplicated; E87.6 Hypokalemia; Z51.5 Encounter for palliative care; Z66 Do not resuscitate; T68.XXXA Hypothermia, initial encounter; I12.9 Hypertensive chronic kidney disease with stage 1 through stage 4 chronic kidney disease, or unspecified chronic kidney disease; E11.22 Type 2 diabetes mellitus with diabetic chronic kidney disease; Z85.038 Personal history of other malignant neoplasm of large intestine; Z88.1 Allergy status to other antibiotic agents; Z92.21 Personal history of antineoplastic chemotherapy; Z90.49 Acquired absence of other specified parts of digestive tract; Z91.14 Patient's other noncompliance with medication regimen
CPT/HCPCS: 10078; 85030